=== PATIENT | female | born 1985 | race Caucasian/White ===

== ENCOUNTER 2016-09-06 17:32 | Emergency (ER) | payer OTHER ==
--- NOTE | 2016-09-06 18:19 | ED ---
Female Urogenital HPI - General Chief complaint: Vaginal Bleeding Stated complaint: bleeding Time Seen by Provider: 09/06/16 18:07 Source: patient, RN notes reviewed Mode of arrival: ambulatory Limitations: no limitations - History of Present Illness Initial comments: Patient is a 31-year-old female presents to the emergency room for evaluation of vaginal bleeding. Patient states her last menstrual period was 07/29/16. Patient states usually has normal cycles every 28 days. Patient states that about 4 days ago she woke up in the middle the night with a large clot the size of a a golf ball with cramping and then symptoms went away. Patient states she had no bleeding after that incident for the next few days. Patient states she was at court today began bleeding heavily. Patient states she's having significant cramping especially in her left lower quadrant. Patient is not sure she if she is . Patient states that this is not her normal period. Patient denies nausea or vomiting. Patient denies headache or dizziness. Patient denies chest pain or shortness of breath. Patient states she had 3 full term births and one miscarriage. Patient denies fevers, chills, weakness. Patient denies trouble urinating, pain or burning during urination or back pain. Last Menstrual Period: 07/29/16 - Related Data Home Medications Medication Instructions Recorded Confirmed Acetaminophen Tab [Tylenol Tab] 975 mg PO Q4H PRN 09/06/16 09/06/16 Ibuprofen [Motrin] 800 mg PO Q6HR PRN 09/06/16 09/06/16 Allergies Allergy/AdvReac Type Severity Reaction Status Date / Time cashew nut Allergy Unknown Verified 09/06/16 18:25 shellfish derived [Shellfish] Allergy Unknown Verified 09/06/16 18:25 levofloxacin [From Levaquin] AdvReac Unknown Verified 09/06/16 18:25 nitrofurantoin AdvReac Swelling Verified 09/06/16 18:25 macrocrystalline [From Macrodantin] Review of Systems ROS Statement: Those systems with pertinent positive or pertinent negative responses have been documented in the HPI. ROS Other: All systems not noted in ROS Statement are negative. Past Medical History Past Medical History: No Reported History History of Any Multi-Drug Resistant Organisms: None Reported Past Surgical History: Adenoidectomy, Cholecystectomy, Hernia Repair Additional Past Surgical History / Comment(s): PE tubes Past Psychological History: No Psychological Hx Reported Smoking Status: Former smoker Past Alcohol Use History: Occasional Past Drug Use History: None Reported General Exam - General Exam Comments Initial Comments: Sitting in exam room, no acute distress. Limitations: no limitations General appearance: alert, in no apparent distress Head exam: Present: atraumatic, normocephalic, normal inspection Eye exam: Present: normal appearance ENT exam: Present: normal exam Neck exam: Present: normal inspection Respiratory exam: Present: normal lung sounds bilaterally. Absent: respiratory distress Cardiovascular Exam: Present: regular rate, normal rhythm, normal heart sounds GI/Abdominal exam: Present: soft, tenderness (LLQ), normal bowel sounds. Absent : distended, guarding, rebound, rigid Speculum exam: Present: other (Patient declined) Extremities exam: Present: normal inspection Back exam: Present: normal inspection Neurological exam: Present: alert, oriented X3, CN II-XII intact, normal gait Psychiatric exam: Present: normal affect, normal mood Skin exam: Present: warm, dry, intact, normal color. Absent: rash Course Vital Signs 09/06/16 18:00 Temperature 97.9 F Pulse Rate 74 Respiratory 18 Rate Blood Pressure 113/59 O2 Sat by Pulse 98 Oximetry Medical Decision Making - Medical Decision Making Patient's 31-year-old female presents to the emergency room for evaluation of vaginal bleeding. test negative. Patient declined pelvic exam. Advised patient to follow-up with [facility] and to take Tylenol/Motrin as needed for pain. Patient states she understands everything that was discussed with her. Return parameters discussed. Case discussed with Dr. Cornelius. - Lab Data Lab Results 09/06/16 09/06/16 Range/Units 18:15 18:15 Urine Color Yellow Urine Appearance Cloudy H (Clear) Urine pH 6.0 (5.0-8.0) Ur Specific [place] 1.029 (1.001-1.035) Urine Protein 1+ H (Negative) Urine Glucose (UA) Negative (Negative) Urine Ketones 4+ H (Negative) Urine Blood Large H (Negative) Urine Nitrate Negative (Negative) Urine Bilirubin Negative (Negative) Urine Urobilinogen 2.0 (<2.0) mg/dL Ur Leukocyte Esterase Small H (Negative) Urine RBC 8 H (0-5) /hpf Urine WBC 5 (0-5) /hpf Ur Squamous Epith Cells 8 H (0-4) /hpf Urine Bacteria Rare H (None) /hpf Urine Mucus Many H (None) /hpf Urine HCG, Qual Not Detected (Not Detectd) Disposition Clinical Impression: Menorrhagia Disposition: HOME SELF-CARE Condition: Good Instructions: Dysmenorrhea (ED), Menorrhagia (ED) Additional Instructions: Take Tylenol or Motrin as needed for pain. Warm moist heat. Please follow-up with [facility] in 24-48 hours for reevaluation. If any new symptom arises, symptoms worsen or fever develops return to ER as soon as possible. Referrals: Katie Hollis MD [STAFF PHYSICIAN] - 1-2 days Time of Disposition: 19:07
[2016-09-06 18:44] LABS: Appearance,Urine Cloudy (Clear); Bacteria,Urine Rare /hpf; Bilirubin,Urine Negative (Negative); Glucose,Urine (UA) Negative (Negative); Ketones,Urine 4+ (Negative); Leukocyte Esterase,Urine Small (Negative); Mucus,Urine Many /hpf; Nitrite,Urine Negative (Negative); Particle Count 10289; Protein,Urine 1+ (Negative); RBC,Urine 8 /hpf (0-5); Specific Gravity,Urine 1.029 (1.001-1.035); Squamous Epithelial Cell,Urine 8 /hpf (0-4); UA Billing (MACRO vs. MICRO) MICRO; WBC,Urine 5 /hpf (0-5)
[2016-09-06] MEDS ORDERED: ACET/COD 300 MG/30 MG STARTER PACK 6 TAB BTL PO STA (19:09)
[2016-09-06 19:10] VITALS: BP 109/64; PULSE 64; RESP 16; TEMP 98.6
== END 2016-09-06 19:19 | disposition home or self-care (01) ==
LOC: EC 17:32
DX: N92.0 Excessive and frequent menstruation with regular cycle (principal); Z88.8 Allergy status to other drugs, medicaments and biological substances; Z88.1 Allergy status to other antibiotic agents; Z91.018 Allergy to other foods; Z91.013 Allergy to seafood; Z87.891 Personal history of nicotine dependence
CPT/HCPCS: 81001; 81025; 99283

== ENCOUNTER 2018-07-03 19:05 | Emergency (ER) | payer OTHER ==
[2018-07-03 19:12] VITALS: TEMP 97.9
[2018-07-03] MEDS ORDERED: KETOROLAC 30 MG/ML 1 ML VIAL IVP STA (19:29)
[2018-07-03] MEDS ORDERED: SODIUM CHLORIDE 0.9% 500 ML 500 ML IV STA (19:29)
--- NOTE | 2018-07-03 19:33 | ED ---
General Adult HPI - General Chief complaint: Chest Pain Stated complaint: CHEST PAIN AND SOB Time Seen by Provider: 07/03/18 19:05 Source: patient, RN notes reviewed Mode of arrival: wheelchair Limitations: no limitations - History of Present Illness Initial comments: This is a 32-year-old female presents to the emergency department complaining of anterior chest pain. Patient describes it as sharp and severe and it started 2 days ago. Patient states taking a deep breath makes it worse. Patient states after she took a nap after the first 2 hours and after that patient states the pain dull for about a day and a half this morning at 11:00 came back it was sharp again in the center of her chest area. Patient states she does have asthma attack and took her inhalers but it did not improve. Patient states she also feels a little short of breath. Patient denies any diaphoresis patient denies any fever. Patient states she's never smoker. Patient states she's not on any control. Patient denies any abdominal pain patient denies nausea vomiting diarrhea. Patient denies any radiation of the pain. Patient denies any syncope or near syncopal episode. Patient denies any headache patient denies numbness weakness. Patient denies any leg swelling or calf pain - Related Data Home Medications Medication Instructions Recorded Confirmed No Known Home Medications 07/03/18 07/03/18 Allergies Allergy/AdvReac Type Severity Reaction Status Date / Time cashew nut Allergy Unknown Verified 07/03/18 19:42 levofloxacin [From Levaquin] Allergy Anaphylaxis Verified 07/03/18 19:42 nitrofurantoin Allergy Anaphylaxis Verified 07/03/18 19:42 macrocrystalline [From Macrodantin] shellfish derived [Shellfish] Allergy Unknown Verified 07/03/18 19:42 Review of Systems ROS Statement: Those systems with pertinent positive or pertinent negative responses have been documented in the HPI. ROS Other: All systems not noted in ROS Statement are negative. Past Medical History Past Medical History: No Reported History Additional Past Medical History / Comment(s): ectopic preg History of Any Multi-Drug Resistant Organisms: None Reported Past Surgical History: Adenoidectomy, Cholecystectomy, Hernia Repair Additional Past Surgical History / Comment(s): PE tubes Past Psychological History: No Psychological Hx Reported Smoking Status: Former smoker Past Alcohol Use History: Occasional Past Drug Use History: None Reported General Exam - General Exam Comments Initial Comments: GENERAL: Patient is well-developed and well-nourished. Patient is nontoxic and well- hydrated and is in mild distress. ENT: Neck is soft and supple. No significant lymphadenopathy is noted. Oropharynx is clear. Moist mucous membranes. Neck has full range of motion without eliciting any pain. EYES: The sclera were anicteric and conjunctiva were pink and moist. Extraocular movements were intact and pupils were equal round and reactive to light. Eyelids were unremarkable. PULMONARY: Unlabored respirations. Good breath sounds bilaterally. No audible rales rhonchi or wheezing was noted. CARDIOVASCULAR: There is a regular rate and rhythm without any murmurs gallops or rubs. Patient 's pain is reproducible on palpation ABDOMEN: Soft and nontender with normal bowel sounds. No palpable organomegaly was noted. There is no palpable pulsatile mass. SKIN: Skin is clear with no lesions or rashes and otherwise unremarkable. NEUROLOGIC: Patient is alert and oriented x3. Cranial nerves II through XII are grossly intact. Motor and sensory are also intact. Normal speech, volume and content. Symmetrical smile. MUSCULOSKELETAL: Normal extremities with adequate strength and full range of motion. LYMPHATICS: No significant lymphadenopathy is noted PSYCHIATRIC: Normal psychiatric evaluation. Limitations: no limitations Course Vital Signs 07/03/18 19:10 Temperature 97.9 F Pulse Rate 81 Respiratory 20 Rate Blood Pressure 115/67 O2 Sat by Pulse 100 Oximetry Medical Decision Making - Medical Decision Making EKG shows a normal sinus rhythm at 72 bpm KS interval 136 dresses 88 QT interval 374 QTC is 409. Patient's EKG shows no ST segment elevation or depression or T wave abnormalities are noted. Chest x-ray shows no acute abnormalities. The patient Toradol patient was feeling considerably better. - Lab Data Result diagrams: 07/03/18 19:22 07/03/18 19:22 Lab Results 07/03/18 07/03/18 07/03/18 Range/Units 19:22 19:22 19:22 WBC 10.2 (3.8-10.6) k/uL RBC 3.92 (3.80-5.40) m/uL Hgb 12.5 (11.4-16.0) gm/dL Hct 36.8 (34.0-46.0) % MCV 93.9 (80.0-100.0) fL MCH 31.8 (25.0-35.0) pg MCHC 33.9 (31.0-37.0) g/dL RDW 11.9 (11.5-15.5) % Plt Count 234 (150-450) k/uL Neutrophils % 49 % Lymphocytes % 38 % Monocytes % 7 % Eosinophils % 3 % Basophils % 0 % Neutrophils # 5.1 (1.3-7.7) k/uL Lymphocytes # 3.9 (1.0-4.8) k/uL Monocytes # 0.7 (0-1.0) k/uL Eosinophils # 0.3 (0-0.7) k/uL Basophils # 0.0 (0-0.2) k/uL PT (9.0-12.0) sec INR (<1.2) APTT (22.0-30.0) sec D-Dimer (<0.60) mg/L FEU Sodium 140 (137-145) mmol/L Potassium 3.9 (3.5-5.1) mmol/L Chloride 109 H (98-107) mmol/L Carbon Dioxide 23 (22-30) mmol/L Anion Gap 8 mmol/L BUN 19 H (7-17) mg/dL Creatinine 0.54 (0.52-1.04) mg/dL Est GFR (CKD-EPI)AfAm >90 (>60 ml/min/1.73 sqM) Est GFR (CKD-EPI)NonAf >90 (>60 ml/min/1.73 sqM) Glucose 105 H (74-99) mg/dL Calcium 9.4 (8.4-10.2) mg/dL Magnesium 1.7 (1.6-2.3) mg/dL Total Bilirubin 0.3 (0.2-1.3) mg/dL AST 20 (14-36) U/L ALT 45 (9-52) U/L Alkaline Phosphatase 54 (38-126) U/L Total Creatine Kinase 64 (30-135) U/L CK-MB (CK-2) 0.9 (0.0-2.4) ng/mL CK-MB (CK-2) Rel Index 1.4 Troponin I <0.012 (0.000-0.034) ng/mL Total Protein 6.5 (6.3-8.2) g/dL Albumin 3.7 (3.5-5.0) g/dL 07/03/18 Range/Units 19:22 WBC (3.8-10.6) k/uL RBC (3.80-5.40) m/uL Hgb (11.4-16.0) gm/dL Hct (34.0-46.0) % MCV (80.0-100.0) fL MCH (25.0-35.0) pg MCHC (31.0-37.0) g/dL RDW (11.5-15.5) % Plt Count (150-450) k/uL Neutrophils % % Lymphocytes % % Monocytes % % Eosinophils % % Basophils % % Neutrophils # (1.3-7.7) k/uL Lymphocytes # (1.0-4.8) k/uL Monocytes # (0-1.0) k/uL Eosinophils # (0-0.7) k/uL Basophils # (0-0.2) k/uL PT 10.4 (9.0-12.0) sec INR 1.1 (<1.2) APTT 24.3 (22.0-30.0) sec D-Dimer 0.52 (<0.60) mg/L FEU Sodium (137-145) mmol/L Potassium (3.5-5.1) mmol/L Chloride (98-107) mmol/L Carbon Dioxide (22-30) mmol/L Anion Gap mmol/L BUN (7-17) mg/dL Creatinine (0.52-1.04) mg/dL Est GFR (CKD-EPI)AfAm (>60 ml/min/1.73 sqM) Est GFR (CKD-EPI)NonAf (>60 ml/min/1.73 sqM) Glucose (74-99) mg/dL Calcium (8.4-10.2) mg/dL Magnesium (1.6-2.3) mg/dL Total Bilirubin (0.2-1.3) mg/dL AST (14-36) U/L ALT (9-52) U/L Alkaline Phosphatase (38-126) U/L Total Creatine Kinase (30-135) U/L CK-MB (CK-2) (0.0-2.4) ng/mL CK-MB (CK-2) Rel Index Troponin I (0.000-0.034) ng/mL Total Protein (6.3-8.2) g/dL Albumin (3.5-5.0) g/dL Disposition Clinical Impression: Chest wall pain Disposition: HOME SELF-CARE Condition: Good Instructions: Costochondritis (ED), Chest Wall Pain (ED) Additional Instructions: Patient should take Motrin 600 mg every 6 hours. Is patient prescribed a controlled substance at d/c from ED?: No Referrals: None,Stated [Primary Care Provider] - 1-2 days Decision Time: 20:37
[2018-07-03 19:56] LABS: Basophils % (A) 0 %; Eosinophils # (A) 0.3 k/uL (0-0.7); Eosinophils % (A) 3 %; HCT 36.8 % (34.0-46.0); HGB 12.5 gm/dL (11.4-16.0); Lymphocytes # (A) 3.9 k/uL (1.0-4.8); Lymphocytes % (A) 38 %; MCH 31.8 pg (25.0-35.0); MCHC 33.9 g/dL (31.0-37.0); MCV 93.9 fL (80.0-100.0); Mean Platelet Volume 7.2; Monocytes # (A) 0.7 k/uL (0-1.0); Monocytes % (A) 7 %; Neutrophils # (A) 5.1 k/uL (1.3-7.7); Neutrophils % (A) 49 %; Platelet Count 234 k/uL (150-450); RBC 3.92 m/uL (3.80-5.40); RDW 11.9 % (11.5-15.5); WBC 10.2 k/uL (3.8-10.6)
--- NOTE | 2018-07-03 20:03 | XR ---
EXAMINATION TYPE: XR chest 2V DATE OF EXAM: 07/03/2018 COMPARISON: 07/24/2013 HISTORY: Short of breath TECHNIQUE: Frontal and lateral views of the chest are obtained. FINDINGS: Heart and mediastinum are normal. Lungs are clear. Diaphragm is normal. Bony thorax appear s normal. IMPRESSION: Normal chest. No change.
[2018-07-03 20:08] LABS: ALT 45 U/L (9-52); AST 20 U/L (14-36); Albumin 3.7 g/dL (3.5-5.0); Alkaline Phosphatase 54 U/L (38-126); Anion Gap 8 mmol/L; Blood Urea Nitrogen 19 mg/dL (7-17); Calcium 9.4 mg/dL (8.4-10.2); Carbon Dioxide 23 mmol/L (22-30); Chloride 109 mmol/L (98-107); Creatine Kinase 64 U/L (30-135); Glucose 105 mg/dL (74-99); Magnesium 1.7 mg/dL (1.6-2.3); Potassium 3.9 mmol/L (3.5-5.1); Sodium 140 mmol/L (137-145); Total Bilirubin 0.3 mg/dL (0.2-1.3); Total Protein 6.5 g/dL (6.3-8.2)
[2018-07-03 20:21] LABS: Creatine Kinase MB 0.9 ng/mL (0.0-2.4); Troponin I <0.012 ng/mL (0.000-0.034)
[2018-07-03 20:26] LABS: D-Dimer 0.52 mg/L FEU (<0.60); INR 1.1 (<1.2); Partial Thromboplastin Time 24.3 sec (22.0-30.0); Prothrombin Time 10.4 sec (9.0-12.0)
[2018-07-03 20:40] VITALS: BP 107/56; PULSE 79; RESP 13
== END 2018-07-03 20:41 | disposition home or self-care (01) ==
LOC: EC 19:05
DX: R07.89 Other chest pain (principal); R06.02 Shortness of breath; Z87.891 Personal history of nicotine dependence; Z90.49 Acquired absence of other specified parts of digestive tract; Z98.890 Other specified postprocedural states; Z88.1 Allergy status to other antibiotic agents; Z91.013 Allergy to seafood; Z91.018 Allergy to other foods
CPT/HCPCS: 36415; 71046; 80053; 82550; 82553; 83735; 84484; 85025; 85379; 85610; 85730; 96374; 99285

== ENCOUNTER 2018-10-16 20:16 | Emergency (ER) | payer OTHER ==
[2018-10-16 20:45] VITALS: BP 134/78; PULSE 92; RESP 20; TEMP 98.7
[2018-10-16] MEDS ORDERED: HYDROcodone/APAP 7.5-325MG 1 EACH TAB PO ONE (21:26)
--- NOTE | 2018-10-16 21:55 | XR ---
EXAMINATION TYPE: XR ankle complete RT DATE OF EXAM: 10/16/2018 COMPARISON: NONE HISTORY: Ankle pain TECHNIQUE: 3 views FINDINGS: Ankle mortise is anatomic. I see no fracture nor dislocation. Joint spaces are normal. IMPRESSION: Calcaneal spurring. No fracture seen.
--- NOTE | 2018-10-16 21:56 | XR ---
EXAMINATION TYPE: XR foot complete RT DATE OF EXAM: 10/16/2018 COMPARISON: NONE HISTORY: Ankle pain foot pain TECHNIQUE: 3 views FINDINGS: Metatarsals appear intact. I see no fracture nor dislocation. There are no erosions. IMPRESSION: Negative right foot exam.
[2018-10-16] MEDS ORDERED: ACET/COD 300 MG/30 MG STARTER PACK 6 TAB BTL PO STA (22:25)
--- NOTE | 2018-10-16 22:26 | ED ---
General Adult HPI - General Chief complaint: Extremity Injury, Lower Stated complaint: Fall,ankle injury Time Seen by Provider: 10/16/18 20:36 Source: patient, RN notes reviewed, old records reviewed Mode of arrival: wheelchair Limitations: no limitations - History of Present Illness Initial comments: 33-year-old female patient presents to ED with right ankle injury. Patient was that she was walking downstairs, suffered a right ankle inversion injury on a broken stay. Patient states that she grabbed guardrail, slid down 2 stairs onto her backside. Patient reports that her primary complaint is right ankle pain. Patient denies any trauma to head or neck. Patient denies any other injury. Patient states that she is ambulatory with pain in her ankle. Patient is a her pain is primarily in her lateral malleolus. Patient denies other complaints. Systemic: Pt denies fatigue, fever/chills, rash. Pt denies weakness, night sweats, weight loss. Neuro: Pt denies headache, visual disturbances, syncope or pre-syncope. HEENT: Pt denies ocular discharge or irritation, otalgia, rhinorrhea, pharyngitis or notable lymphadenopathy. Cardiopulmonary: Pt denies chest pain, SOB, heart palpitations, dyspnea on exertion. Abdominal/GI: Pt denies abdominal pain, n/v/d. : Pt denies dysuria, burning w/ urination, frequency/urgency. Denies new onset urinary or bowel incontinence. MSK: Pt denies loss of strength or function in extremities. Neuro: Pt denies new onset weakness, paresthesias. - Related Data Home Medications Medication Instructions Recorded Confirmed No Known Home Medications 07/03/18 10/16/18 Allergies Allergy/AdvReac Type Severity Reaction Status Date / Time cashew nut Allergy Unknown Verified 07/03/18 19:42 levofloxacin [From Levaquin] Allergy Anaphylaxis Verified 07/03/18 19:42 nitrofurantoin Allergy Anaphylaxis Verified 07/03/18 19:42 macrocrystalline [From Macrodantin] shellfish derived [Shellfish] Allergy Unknown Verified 07/03/18 19:42 Review of Systems ROS Statement: Those systems with pertinent positive or pertinent negative responses have been documented in the HPI. ROS Other: All systems not noted in ROS Statement are negative. Past Medical History Past Medical History: No Reported History Additional Past Medical History / Comment(s): ectopic preg History of Any Multi-Drug Resistant Organisms: None Reported Past Surgical History: Adenoidectomy, Cholecystectomy, Hernia Repair Additional Past Surgical History / Comment(s): PE tubes Past Psychological History: No Psychological Hx Reported Smoking Status: Former smoker Past Alcohol Use History: Occasional Past Drug Use History: None Reported General Exam - General Exam Comments Initial Comments: Constitutional: NAD, AOX3, Pt has pleasant affect. HEENT: NC/AT, trachea midline, neck supple, no lymphadenopathy. Posterior pharynx non erythematous, without exudates. External ears appear normal, without discharge. Mucous membranes moist. Eyes PERRLA, EOM intact. There is no scleral icterus. No pallor noted. Cardiopulmonary: RRR, no murmurs, rubs or gallops, no JVD noted. Lungs CTAB in anterior and posterior hoyos. No peripheral edema. Abdominal exam: Abdomen soft and non-distended. Abdomen non-tender to palpation in all 4 quadrants. Bowel sounds active in LLQ. No hepatosplenomegaly. No ecchymosis Neuro: CN II-XII grossly intact. No nuchal rigidity. MSK: Lateral malleolus mildly tender to palpation. Sensation intact. Plantar and dorsiflexion intact. Patient able wiggle toes. No tibia/fibular tenderness. No other areas of tenderness. No posterior calf tenderness bilaterally, homans sign negative bilaterally. Posterior tibialis and radial pulse +2 bilaterally. Sensation intact in upper and lower extremities. Full active ROM in upper and lower extremities, 5/5 stregnth. Limitations: no limitations Course Vital Signs 10/16/18 20:41 Temperature 98.7 F Pulse Rate 92 Respiratory 20 Rate Blood Pressure 134/78 O2 Sat by Pulse 99 Oximetry Medical Decision Making - Medical Decision Making 33-year-old female patient presents to ED with right ankle injury. Patient was that she was walking downstairs, suffered a right ankle inversion injury on a broken stay. Patient states that she grabbed guardrail, slid down 2 stairs onto her backside. Patient reports that her primary complaint is right ankle pain. Patient denies any trauma to head or neck. Patient denies any other injury. Patient states that she is ambulatory with pain in her ankle. Patient is a her pain is primarily in her lateral malleolus. Patient denies other complaints. Pt VSS, afebrile. Physical exam displayed: Lateral malleolus mildly tender to palpation. Sensation intact. Plantar and dorsiflexion intact. Patient able wiggle toes. No tibia/fibular tenderness. Plain film of ankle and foot do not display any acute fracture. Patient diagnosed with ankle sprain. Patient placed in posterior ankle splint. Patient upper airway and orthopedic follow-up. Patient to follow-up orthopedic consult 1-2 days. Patient to follow-up PCP 1-2 days. Patient not driving home. Case discussed with Dr. Bain. Disposition Clinical Impression: Ankle sprain Disposition: HOME SELF-CARE Condition: Stable Instructions (If sedation given, give patient instructions): Ankle Sprain (ED) Additional Instructions: Patient to adhere to previously discussed treatment plan and will take medication(s) as directed. Patient to follow up with PCP in 1-2 days. Patient to return to ED if symptoms do not improve. Is patient prescribed a controlled substance at d/c from ED?: No Referrals: None,Stated [Primary Care Provider] - 1-2 days Michael De Leon DO [Doctor of Osteopathic Medicine] - 1-2 days Time of Disposition: 22:25
== END 2018-10-16 22:33 | disposition home or self-care (01) ==
LOC: EC 20:16
DX: S93.401A Sprain of unspecified ligament of right ankle, initial encounter (principal); Z91.018 Allergy to other foods; Z88.1 Allergy status to other antibiotic agents; Z91.013 Allergy to seafood; Z87.891 Personal history of nicotine dependence; W10.9XXA Fall (on) (from) unspecified stairs and steps, initial encounter; Y93.01 Activity, walking, marching and hiking
CPT/HCPCS: 29515; 99284

== ENCOUNTER 2019-10-05 23:46 | Emergency (ER) | payer OTHER ==
[2019-10-05 23:51] VITALS: BP 145/100; PULSE 82; RESP 20; TEMP 98.9
[2019-10-06] MEDS ORDERED: HYDROcodone/APAP 10-325MG 1 EACH TAB PO ONE (00:01)
--- NOTE | 2019-10-06 00:40 | XR ---
EXAMINATION TYPE: XR knee complete LT DATE OF EXAM: 10/06/2019 COMPARISON: NONE HISTORY: Knee pain TECHNIQUE: 3 views FINDINGS: I see no fracture nor dislocation. Joint spaces are normal. There is no sign of joint effus ion. IMPRESSION: Negative left knee exam.
[2019-10-06] MEDS ORDERED: ACET/COD 300 MG/30 MG STARTER PACK 6 TAB BTL PO STA (00:47)
--- NOTE | 2019-10-06 00:49 | ED ---
Lower Extremity Injury HPI - General Chief Complaint: Extremity Injury, Lower Stated Complaint: leg pain Time Seen by Provider: 10/05/19 23:57 Source: patient Mode of arrival: ambulatory Limitations: no limitations - History of Present Illness Initial Comments: 34yo female presenting today for chief complaint of left knee pain. Patient states she went to set a ball jumped up in the air when she felt a pop the left knee mid air. Patient states it feels like it is inside the knee. Patient denies dislocation denies fall struck trauma. Patient denies numbness tingling loss sensation weakness pallor of the knee. Patient states she believes she pulled something. Patient denies any other complaints or injury. Remaining review of systems negative upon arrival patient appears on the signs of acute distress she is grabbing the left knee. - Related Data Home Medications Medication Instructions Recorded Confirmed No Known Home Medications 07/03/18 10/16/18 Allergies Allergy/AdvReac Type Severity Reaction Status Date / Time cashew nut Allergy Unknown Verified 10/05/19 23:51 levofloxacin [From Levaquin] Allergy Anaphylaxis Verified 10/05/19 23:51 nitrofurantoin Allergy Anaphylaxis Verified 10/05/19 23:51 macrocrystalline [From Macrodantin] shellfish derived [Shellfish] Allergy Unknown Verified 10/05/19 23:51 Review of Systems ROS Statement: Those systems with pertinent positive or pertinent negative responses have been documented in the HPI. ROS Other: All systems not noted in ROS Statement are negative. Past Medical History Past Medical History: No Reported History Additional Past Medical History / Comment(s): ectopic preg History of Any Multi-Drug Resistant Organisms: None Reported Past Surgical History: Adenoidectomy, Cholecystectomy, Hernia Repair Additional Past Surgical History / Comment(s): PE tubes Past Psychological History: No Psychological Hx Reported Smoking Status: Former smoker Past Alcohol Use History: Occasional Past Drug Use History: None Reported General Exam - General Exam Comments Initial Comments: General: The patient is awake and alert, in no distress, and does not appear acutely ill. Eye: =3 mm pupils are equal, round and reactive to light, extra-ocular movements are intact. No nystagmus. There is normal conjunctiva bilaterally. No signs of icterus. Cardiovascular: There is a regular rate and rhythm. No murmur, rub or gallop is appreciated. Respiratory: Lungs are clear to auscultation, respirations are non-labored, breath sounds are equal. No wheezes, stridor, rales, or rhonchi. Musculoskeletal: Normal inspection of the knees bilaterally. No obvious soft tissue swelling. No noted laxity. Patient is able to range of the left knee however this is tender. There is range of motion of the right knee ankles bi laterally as well as hips. Patient extensor mechanism intact. Palpable Achilles tendon. Strength 5/5. Sensation intact. DP pulses equal bilaterally 2+. Neurological: A&O x 3. CN II-XII intact grossly, There are no obvious motor or sensory deficits. Coordination appears grossly intact. Speech is normal. Skin: Skin is warm and dry and no rashes or lesions are noted. Psychiatric: Cooperative, appropriate mood & affect, normal judgment. Limitations: no limitations Course Vital Signs 10/05/19 23:49 Temperature 98.9 F Pulse Rate 82 Respiratory 20 Rate Blood Pressure 145/100 O2 Sat by Pulse 99 Oximetry Medical Decision Making - Medical Decision Making 34yo female presenting for cc of left knee pain. No obvious PE findings aside from pain wtih ROM. XR (-) patient neurovascularly intact. Suspect patient has possible ligamentous injury such as PCL ACL. I recommend patient use a knee immobilizer for ambulation as well as crutches. Follow-up with orthopedics for outpatient MRI. Patient's group with this care plan discharge at this time I recommend patient avoid sports at this time. Discussed case with Dr. Borjas Disposition Clinical Impression: Left knee sprain, Left knee pain, Left knee injury Disposition: HOME SELF-CARE Condition: Good Instructions (If sedation given, give patient instructions): Knee Sprain (ED) Additional Instructions: Please use medication as discussed. Please follow-up with orthopedic surgery in the next week recommend use of crutches, keep knee immobilizer in place for ambulation, recommend outpatient MRI. Please return to emergency room if the symptoms increase or worsen or for any other concerns. Is patient prescribed a controlled substance at d/c from ED?: No Referrals: None,Stated [Primary Care Provider] - 1-2 days Zeyad Jacobson MD [STAFF PHYSICIAN] - 1-2 days Time of Disposition: 00:48
== END 2019-10-06 01:03 | disposition home or self-care (01) ==
LOC: EC 23:46
DX: S83.92XA Sprain of unspecified site of left knee, initial encounter (principal); Z91.018 Allergy to other foods; Z88.1 Allergy status to other antibiotic agents; Z91.013 Allergy to seafood; Z87.891 Personal history of nicotine dependence; X50.9XXA Other and unspecified overexertion or strenuous movements or postures, initial encounter
CPT/HCPCS: 73562; 99283; L1830

== ENCOUNTER 2020-01-31 23:22 | Emergency (ER) | payer OTHER ==
[2020-01-31 23:27] VITALS: BP 157/78; PULSE 76; RESP 18; TEMP 97.9
[2020-01-31] MEDS ORDERED: Acetaminophen-Codeine 300-30mg TAB PO STA (23:43)
[2020-01-31] MEDS ORDERED: ACET/COD 300 MG/30 MG STARTER PACK 6 TAB BTL PO STA (23:43)
[2020-01-31] MEDS ORDERED: PENICILLIN VK 500MG STARTER 4 TAB BTL PO STA (23:43)
[2020-01-31] MEDS ORDERED: IBUPROFEN 600 MG STARTER PACK 4 TAB BTL PO STA (23:43)
[2020-01-31] MEDS ORDERED: IBUPROFEN 800 MG TAB PO STA (23:43)
[2020-02-01] MEDS ORDERED: PENICILLIN V POTASSIUM 250 MG TAB PO ONE
[2020-02-01] MEDS ORDERED: HYDROcodone/APAP 5-325MG 1 EACH TAB PO STA (00:18)
--- NOTE | 2020-02-01 00:20 | ED ---
ENT HPI - General Chief complaint: Dental/Oral Stated complaint: Jaw/tooth pain Time Seen by Provider: 01/31/20 23:33 Source: patient, RN notes reviewed, old records reviewed Mode of arrival: ambulatory Limitations: no limitations - History of Present Illness Initial comments: This is a 32-year-old female DF for evaluation patient Dese for evaluation of severe jaw pain severe tooth pain. Patient has been increasing mild nausea no vomiting no fevers. No significant swelling or face history of dental abscess dental caries does have plan in the future to see a dentist but secondary to pandemic has not been able to MD complaint: tooth pain -: days(s) Location: tooth # (Left rear molar) Severity: severe Severity scale (1-10): 9 Quality: aching, sharp Consistency: constant Improves with: none Worsens with: none Context- Dental: history of dental caries, poor dental care - Related Data Previous Rx's Medication Instructions Recorded HYDROcodone/APAP 5-325MG [[place] 1 tab PO Q6HR PRN #12 tab 02/01/20 5-325] Penicillin V Potassium [Pen Vee K] 500 mg PO Q6H 10 Days #40 tablet 02/02/20 Allergies Allergy/AdvReac Type Severity Reaction Status Date / Time cashew nut Allergy Unknown Verified 02/02/20 15:39 codeine Allergy Chest Pain Verified 02/02/20 15:39 levofloxacin [From Levaquin] Allergy Anaphylaxis Verified 02/02/20 15:39 nitrofurantoin Allergy Anaphylaxis Verified 02/02/20 15:39 macrocrystalline [From Macrodantin] shellfish derived [Shellfish] Allergy Unknown Verified 02/02/20 15:39 Review of Systems ROS Statement: Those systems with pertinent positive or pertinent negative responses have been documented in the HPI. ROS Other: All systems not noted in ROS Statement are negative. Past Medical History Past Medical History: No Reported History Additional Past Medical History / Comment(s): ectopic preg History of Any Multi-Drug Resistant Organisms: None Reported Past Surgical History: Adenoidectomy, Cholecystectomy, Hernia Repair Additional Past Surgical History / Comment(s): PE tubes Past Psychological History: No Psychological Hx Reported Smoking Status: Former smoker Past Alcohol Use History: Occasional Past Drug Use History: None Reported General Exam Limitations: no limitations General appearance: alert, in no apparent distress Head exam: Present: atraumatic, normocephalic, normal inspection Eye exam: Present: normal appearance, PERRL, EOMI. Absent: scleral icterus, conjunctival injection, periorbital swelling ENT exam: Present: normal exam, mucous membranes moist, other (Left rear molar tooth fracture) Neck exam: Present: normal inspection. Absent: tenderness, meningismus, lymphadenopathy Respiratory exam: Present: normal lung sounds bilaterally. Absent: respiratory distress, wheezes, rales, rhonchi, stridor Cardiovascular Exam: Present: regular rate, normal rhythm, normal heart sounds. Absent: systolic murmur, diastolic murmur, rubs, gallop, clicks GI/Abdominal exam: Present: soft, normal bowel sounds. Absent: distended, tenderness, guarding, rebound, rigid Extremities exam: Present: normal inspection, full ROM, normal capillary refill. Absent: tenderness, pedal edema, joint swelling, calf tenderness Back exam: Present: normal inspection Neurological exam: Present: alert, oriented X3, CN II-XII intact Psychiatric exam: Present: normal affect, normal mood Skin exam: Present: warm, dry, intact, normal color. Absent: rash Course Vital Signs 01/31/20 23:24 Temperature 97.9 F Pulse Rate 76 Respiratory 18 Rate Blood Pressure 157/78 O2 Sat by Pulse 100 Oximetry - Reevaluation(s) Reevaluation #1: Medical records reviewed Patient's pain is controlled Medical Decision Making - Medical Decision Making 34 female DF for evaluation patient has severe tooth pain patient placed on antibiotics and pain control can be discharged Disposition Clinical Impression: Dental caries, Dental abscess Disposition: HOME SELF-CARE Condition: Good Instructions (If sedation given, give patient instructions): Dental Abscess (ED), Toothache (ED) Prescriptions: HYDROcodone/APAP 5-325MG [[place] 5-325] 1 tab PO Q6HR PRN #12 tab PRN Reason: Pain Is patient prescribed a controlled substance at d/c from ED?: Yes When asked, does pt state using other controlled substances?: No If prescribed controlled substance>3 days was MAPS reviewed?: Prescribed <3 Days If opioid is for acute pain is fill amount 7 days or less?: Yes If Rx opioid, was Start Talking consent form obtained?: Yes Referrals: None,Stated [Primary Care Provider] - 1-2 days
== END 2020-02-01 00:57 | disposition home or self-care (01) ==
LOC: EC 23:22
DX: K04.7 Periapical abscess without sinus (principal); K02.9 Dental caries, unspecified; Z88.1 Allergy status to other antibiotic agents; Z88.5 Allergy status to narcotic agent; Z91.013 Allergy to seafood; Z91.018 Allergy to other foods; Z87.891 Personal history of nicotine dependence
CPT/HCPCS: 99283

== ENCOUNTER 2020-02-02 15:30 | Emergency (ER) | payer OTHER ==
[2020-02-02 15:39] VITALS: RESP 18
--- NOTE | 2020-02-02 16:13 | ED ---
General Adult HPI - General Chief complaint: Dental/Oral Stated complaint: swollen jaw Time Seen by Provider: 02/02/20 15:57 Source: patient, RN notes reviewed, old records reviewed Mode of arrival: ambulatory Limitations: no limitations - History of Present Illness Initial comments: 34-year-old female presents to the emergency department for dental pain. Patient states she has had dental pain for the past 5 days or so. Patient states that it is swollen in the lower jaw. States that the swelling started yesterday. Patient states she finished the starter pack of penicillin she was given in the morning yesterday but did not have a prescription at the pharmacy for more penicillin. Patient states that about the day the swelling started to get worse. She denies fevers or chills. She denies difficulty eating or drinking. Denies any neck pain.Patient has no other complaints at this time including shortness of breath, chest pain, abdominal pain, nausea or vomiting, headache, or visual changes. - Related Data Previous Rx's Medication Instructions Recorded HYDROcodone/APAP 5-325MG [[place] 1 tab PO Q6HR PRN #12 tab 02/01/20 5-325] Penicillin V Potassium [Pen Vee K] 500 mg PO Q6H 10 Days #40 tablet 02/02/20 Allergies Allergy/AdvReac Type Severity Reaction Status Date / Time cashew nut Allergy Unknown Verified 02/02/20 15:39 codeine Allergy Chest Pain Verified 02/02/20 15:39 levofloxacin [From Levaquin] Allergy Anaphylaxis Verified 02/02/20 15:39 nitrofurantoin Allergy Anaphylaxis Verified 02/02/20 15:39 macrocrystalline [From Macrodantin] shellfish derived [Shellfish] Allergy Unknown Verified 02/02/20 15:39 Review of Systems ROS Statement: Those systems with pertinent positive or pertinent negative responses have been documented in the HPI. ROS Other: All systems not noted in ROS Statement are negative. Past Medical History Past Medical History: No Reported History Additional Past Medical History / Comment(s): ectopic preg History of Any Multi-Drug Resistant Organisms: None Reported Past Surgical History: Adenoidectomy, Cholecystectomy, Hernia Repair Additional Past Surgical History / Comment(s): PE tubes Past Psychological History: No Psychological Hx Reported Smoking Status: Former smoker Past Alcohol Use History: Occasional Past Drug Use History: Marijuana General Exam Limitations: no limitations General appearance: alert, in no apparent distress Head exam: Present: atraumatic, normocephalic, normal inspection Eye exam: Present: normal appearance, PERRL, EOMI. Absent: scleral icterus, conjunctival injection, periorbital swelling ENT exam: Present: mucous membranes moist, other (Patient has mild edema of the left lower jaw. Patient has a cracked tooth 19. small area of edema adjacent to the tooth.) Neck exam: Present: normal inspection, full ROM. Absent: tenderness, meningismus, lymphadenopathy Respiratory exam: Present: normal lung sounds bilaterally Cardiovascular Exam: Present: regular rate, normal rhythm, normal heart sounds. Absent: systolic murmur, diastolic murmur, rubs, gallop, clicks Neurological exam: Present: alert Course Vital Signs 02/02/20 02/02/20 15:36 16:02 Temperature 98.0 F 98 F Pulse Rate 65 72 Respiratory 18 Rate Blood Pressure 149/84 141/85 O2 Sat by Pulse 99 99 Oximetry Medical Decision Making - Medical Decision Making Patient does have some edema of the left lower jaw. I did attempt to incise and drain this as she did have an area of edema adjacent to the affected cracked tooth with 18 G however no purulent material is expelled. Patient only received a starter pack to the emergency room for penicillin. Patient needs longer prescription and was therefore given ten-day supply. She will follow-up with her doctor and dentist as soon as possible. If symptoms are somewhat improving after the next couple days of penicillin she will return here to the emergency room. Disposition Clinical Impression: Pain, dental Disposition: HOME SELF-CARE Condition: Good Instructions (If sedation given, give patient instructions): Toothache (ED) Additional Instructions: Please take antibiotic as directed. Please apply cold compresses to the face. Take Motrin Tylenol for pain. Follow-up with dentist as soon as possible. Return to the emergency room for worsening symptoms. Prescriptions: Penicillin V Potassium [Pen Vee K] 500 mg PO Q6H 10 Days #40 tablet Is patient prescribed a controlled substance at d/c from ED?: No Referrals: Ariella Del Real MD [REFERRING] - 1-2 days Time of Disposition: 16:14
[2020-02-02 16:18] VITALS: BP 141/85; PULSE 72; TEMP 98
== END 2020-02-02 16:29 | disposition home or self-care (01) ==
LOC: EC 15:30
DX: K03.81 Cracked tooth (principal); Z88.1 Allergy status to other antibiotic agents; Z88.5 Allergy status to narcotic agent; Z88.8 Allergy status to other drugs, medicaments and biological substances; Z87.891 Personal history of nicotine dependence; Z91.013 Allergy to seafood; Z91.018 Allergy to other foods; Z90.49 Acquired absence of other specified parts of digestive tract; Z90.89 Acquired absence of other organs
CPT/HCPCS: 41800; 99283

== ENCOUNTER → 2020-06-03 | Outpatient (CLI) | payer OTHER ==
[2020-06-03 13:46] LABS: HCT 37.8 % (34.0-46.0); HGB 12.7 gm/dL (11.4-16.0); MCH 30.5 pg (25.0-35.0); MCHC 33.7 g/dL (31.0-37.0); MCV 90.6 fL (80.0-100.0); Mean Platelet Volume 7.3; Platelet Count 284 k/uL (150-450); RBC 4.17 m/uL (3.80-5.40); RDW 12.1 % (11.5-15.5); WBC 10.5 k/uL (3.8-10.6)
[2020-06-03 14:28] LABS: Appearance,Urine Cloudy (Clear); Bacteria,Urine Rare /hpf; Bilirubin,Urine Negative (Negative); Blood,Urine Negative (Negative); Color,Urine Yellow; Glucose,Urine (UA) Negative (Negative); Hyaline Casts,Urine 1 /lpf (0-2); Ketones,Urine Negative (Negative); Leukocyte Esterase,Urine Small (Negative); Mucus,Urine Many /hpf; Nitrite,Urine Negative (Negative); PH, Urine 6.5 (5.0-8.0); Protein,Urine Trace (Negative); RBC,Urine 9 /hpf (0-5); Specific Gravity,Urine 1.025 (1.001-1.035); Squamous Epithelial Cell,Urine 5 /hpf (0-4); Urobilinogen,Urine <2.0 mg/dL (<2.0); WBC,Urine 4 /hpf (0-5)
== END | disposition home or self-care (01) ==
LOC: LABWHC1 12:22
DX: Z01.812 Encounter for preprocedural laboratory examination (principal)
CPT/HCPCS: 36415; 81001; 85027

== ENCOUNTER 2020-07-10 22:41 | Emergency (ER) | payer OTHER ==
[2020-07-10 23:11] LABS: Basophils % (A) 0 %; Eosinophils # (A) 0.6 k/uL (0-0.7); Eosinophils % (A) 5 %; HCT 40.7 % (34.0-46.0); HGB 12.7 gm/dL (11.4-16.0); Lymphocytes # (A) 4.3 k/uL (1.0-4.8); Lymphocytes % (A) 35 %; MCH 30.4 pg (25.0-35.0); MCHC 31.2 g/dL (31.0-37.0); Mean Platelet Volume 7.5; Monocytes # (A) 0.6 k/uL (0-1.0); Monocytes % (A) 5 %; Neutrophils # (A) 6.4 k/uL (1.3-7.7); Neutrophils % (A) 53 %; Platelet Count 293 k/uL (150-450); RBC 4.19 m/uL (3.80-5.40); RDW 13.1 % (11.5-15.5); WBC 12.1 k/uL (3.8-10.6)
[2020-07-10 23:20] LABS: MCV 97.2 fL (80.0-100.0)
[2020-07-10 23:23] LABS: ALT 19 U/L (4-34); AST 19 U/L (14-36); African American GFR (CKD) >90 (>60 ml/min/1.73 sqM); Albumin 3.9 g/dL (3.5-5.0); Alkaline Phosphatase 84 U/L (38-126); Amylase 65 U/L (30-110); Anion Gap 5 mmol/L; Blood Urea Nitrogen 15 mg/dL (7-17); Calcium 9.1 mg/dL (8.4-10.2); Carbon Dioxide 25 mmol/L (22-30); Chloride 109 mmol/L (98-107); Glucose 95 mg/dL (74-99); Lipase 142 U/L (23-300); Non-African American GFR(CKD) >90 (>60 ml/min/1.73 sqM); Potassium 3.7 mmol/L (3.5-5.1); Sodium 139 mmol/L (137-145); Total Bilirubin 0.2 mg/dL (0.2-1.3); Total Protein 6.7 g/dL (6.3-8.2)
[2020-07-10 23:38] LABS: HCG,Quantitative Serum <2.4 mIU/mL
--- NOTE | 2020-07-10 23:57 | ED ---
Abdominal Pain HPI - General Chief Complaint: Abdominal Pain Stated Complaint: Cramping, preg about 6 wks Time Seen by Provider: 07/10/20 22:48 Source: patient, family Mode of arrival: ambulatory Limitations: no limitations - History of Present Illness Initial Comments: this patient is a 35-year-old woman with history of previous tubal ligation which was subsequently reversed who presents with concern that she may have ectopic . The patient states that she had taken a home test that looked faintly positive. Her last period she states was approximately 3-4 weeks ago but was somewhat claims auditor than usual. She has been having some intermittent sharp, right lower quadrant pains going back 1-2 days now. She states that there is currently not pain but they tend to come and go. She is not having any gastrointestinal symptoms, no nausea or vomiting. No anorexia, no diarrhea or constipation. She has not noted any change of urination. No vaginal discharge or bleeding. MD Complaint: abdominal pain -: days(s) Location: RLQ Severity: moderate Quality: stabbing Consistency: intermittent Improves With: nothing Worsens With: nothing Associated Symptoms: denies other symptoms - Related Data Previous Rx's Medication Instructions Recorded HYDROcodone/APAP 5-325MG [[place] 1 tab PO Q6HR PRN #12 tab 02/01/20 5-325] Penicillin V Potassium [Pen Vee K] 500 mg PO Q6H 10 Days #40 tablet 02/02/20 Allergies Allergy/AdvReac Type Severity Reaction Status Date / Time cashew nut Allergy Unknown Verified 07/10/20 22:47 codeine Allergy Chest Pain Verified 07/10/20 22:47 levofloxacin [From Levaquin] Allergy Anaphylaxis Verified 07/10/20 22:47 nitrofurantoin Allergy Anaphylaxis Verified 07/10/20 22:47 macrocrystalline [From Macrodantin] shellfish derived [Shellfish] Allergy Unknown Verified 07/10/20 22:47 Review of Systems ROS Statement: Those systems with pertinent positive or pertinent negative responses have been documented in the HPI. ROS Other: All systems not noted in ROS Statement are negative. Constitutional: Denies: fever, chills Respiratory: Denies: cough, dyspnea Cardiovascular: Denies: chest pain, palpitations Gastrointestinal: Reports: as per HPI, abdominal pain. Denies: nausea, vomiting, diarrhea, constipation Genitourinary: Denies: dysuria, hematuria, discharge, abnormal menses Musculoskeletal: Denies: back pain Skin: Denies: rash Neurological: Denies: headache Past Medical History Past Medical History: Asthma Additional Past Medical History / Comment(s): ectopic preg History of Any Multi-Drug Resistant Organisms: None Reported Past Surgical History: Adenoidectomy, Cholecystectomy, Hernia Repair Additional Past Surgical History / Comment(s): PE tubes Past Psychological History: No Psychological Hx Reported Smoking Status: Former smoker Past Alcohol Use History: None Reported Past Drug Use History: Marijuana General Exam Limitations: no limitations General appearance: alert, in no apparent distress Head exam: Present: atraumatic, normocephalic Eye exam: Present: normal appearance. Absent: scleral icterus, conjunctival injection Respiratory exam: Present: normal lung sounds bilaterally. Absent: respiratory distress, wheezes, rales, rhonchi, stridor Cardiovascular Exam: Present: regular rate, normal rhythm, normal heart sounds. Absent: systolic murmur, diastolic murmur, rubs, gallop GI/Abdominal exam: Present: soft, normal bowel sounds. Absent: distended, tenderness, guarding, rebound, rigid, mass, pulsatile mass, hernia Extremities exam: Present: normal inspection, normal capillary refill. Absent: pedal edema, calf tenderness Back exam: Present: normal inspection. Absent: CVA tenderness (R), CVA tenderness (L) Neurological exam: Present: alert Skin exam: Present: warm, dry, intact, normal color. Absent: rash Course Vital Signs 07/10/20 07/10/20 22:43 23:58 Temperature 98.8 F 98.1 F Pulse Rate 91 86 Respiratory 20 18 Rate Blood Pressure 150/77 117/78 O2 Sat by Pulse 100 100 Oximetry Medical Decision Making - Medical Decision Making this patient is 35-year-old woman with some intermittent sharp stabbing right lower quadrant pains. On reevaluation, she is again not having pain and there is no tenderness on the exam. The patient's test is negative. We discussed appropriate further care and follow-up as well as return parameters. Patient given appendicitis warnings, but no tenderness on the exam. - Lab Data Result diagrams: 07/10/20 22:59 07/10/20 22:59 Lab Results 07/10/20 07/10/20 07/10/20 Range/Units 22:59 22:59 23:55 WBC 12.1 H (3.8-10.6) k/uL RBC 4.19 (3.80-5.40) m/uL Hgb 12.7 (11.4-16.0) gm/dL Hct 40.7 (34.0-46.0) % MCV 97.2 D (80.0-100.0) fL MCH 30.4 (25.0-35.0) pg MCHC 31.2 (31.0-37.0) g/dL RDW 13.1 (11.5-15.5) % Plt Count 293 (150-450) k/uL Neutrophils % 53 % Lymphocytes % 35 % Monocytes % 5 % Eosinophils % 5 % Basophils % 0 % Neutrophils # 6.4 (1.3-7.7) k/uL Lymphocytes # 4.3 (1.0-4.8) k/uL Monocytes # 0.6 (0-1.0) k/uL Eosinophils # 0.6 (0-0.7) k/uL Basophils # 0.0 (0-0.2) k/uL Sodium 139 (137-145) mmol/L Potassium 3.7 (3.5-5.1) mmol/L Chloride 109 H (98-107) mmol/L Carbon Dioxide 25 (22-30) mmol/L Anion Gap 5 mmol/L BUN 15 (7-17) mg/dL Creatinine 0.78 (0.52-1.04) mg/dL Est GFR (CKD-EPI)AfAm >90 (>60 ml/min/1.73 sqM) Est GFR (CKD-EPI)NonAf >90 (>60 ml/min/1.73 sqM) Glucose 95 (74-99) mg/dL Calcium 9.1 (8.4-10.2) mg/dL Total Bilirubin 0.2 (0.2-1.3) mg/dL AST 19 (14-36) U/L ALT 19 (4-34) U/L Alkaline Phosphatase 84 (38-126) U/L Total Protein 6.7 (6.3-8.2) g/dL Albumin 3.9 (3.5-5.0) g/dL Amylase 65 (30-110) U/L Lipase 142 (23-300) U/L HCG, Quant <2.4 mIU/mL Urine Color Yellow Urine Appearance Clear (Clear) Urine pH 6.5 (5.0-8.0) Ur Specific [place] 1.028 (1.001-1.035) Urine Protein Negative (Negative) Urine Glucose (UA) Negative (Negative) Urine Ketones Negative (Negative) Urine Blood Negative (Negative) Urine Nitrite Negative (Negative) Urine Bilirubin Negative (Negative) Urine Urobilinogen <2.0 (<2.0) mg/dL Ur Leukocyte Esterase Negative (Negative) Disposition Clinical Impression: Abdominal pain Disposition: HOME SELF-CARE Condition: Good Instructions (If sedation given, give patient instructions): Abdominal Pain (ED) Is patient prescribed a controlled substance at d/c from ED?: No Referrals: None,Stated [Primary Care Provider] - 1-2 days
[2020-07-10 23:59] VITALS: BP 117/78; PULSE 86; RESP 18; TEMP 98.1
[2020-07-11 00:02] LABS: Appearance,Urine Clear (Clear); Bilirubin,Urine Negative (Negative); Blood,Urine Negative (Negative); Color,Urine Yellow; Glucose,Urine (UA) Negative (Negative); Ketones,Urine Negative (Negative); Leukocyte Esterase,Urine Negative (Negative); Nitrite,Urine Negative (Negative); PH, Urine 6.5 (5.0-8.0); Protein,Urine Negative (Negative); Specific Gravity,Urine 1.028 (1.001-1.035); Urobilinogen,Urine <2.0 mg/dL (<2.0)
== END 2020-07-11 00:44 | disposition home or self-care (01) ==
LOC: EC 22:41
DX: R10.31 Right lower quadrant pain (principal); Z91.018 Allergy to other foods; Z88.5 Allergy status to narcotic agent; Z88.1 Allergy status to other antibiotic agents; Z91.013 Allergy to seafood; Z90.49 Acquired absence of other specified parts of digestive tract; Z87.891 Personal history of nicotine dependence
CPT/HCPCS: 36415; 80053; 81003; 82150; 83690; 84702; 85025; 99284

== ENCOUNTER 2020-11-06 17:30 | Emergency (ER) | payer OTHER ==
--- NOTE | 2020-11-06 18:10 | ED ---
Female Urogenital HPI - General Chief complaint: Urogenital Stated complaint: vaginal bleeding Time Seen by Provider: 11/06/20 17:41 Source: patient Mode of arrival: ambulatory Limitations: no limitations - History of Present Illness Initial comments: 35-year-old female presents having noticed a large golf ball size foreign body coming from the vaginal area while urinating. Patient states she noticed it in the toilet it was white and hard tissue-like. Patient states she's had no pain or cramping that is a few days late on her menstrual cycle. Patient took a negative test this morning. No abdominal pain no back pain. Patient did have a tubal reversal about 5 months ago. Patient has a history of 6 para 4. Patient has an ectopic as well. Patient states last month her mental cycle was slightly different as far as one might day in 2 days of heavy clots. Again no abdominal pain no fatigue no back pain no breast tenderness. Last Menstrual Period: 10/11/20 Patient : No (took neg preg this am) Associated Symptoms: other (large tisse like clot) - Related Data Previous Rx's Medication Instructions Recorded HYDROcodone/APAP 5-325MG [[place] 1 tab PO Q6HR PRN #12 tab 02/01/20 5-325] Penicillin V Potassium [Pen Vee K] 500 mg PO Q6H 10 Days #40 tablet 02/02/20 Amoxicillin 875 mg PO Q12HR #14 tablet 11/06/20 Allergies Allergy/AdvReac Type Severity Reaction Status Date / Time cashew nut Allergy Unknown Verified 11/06/20 17:35 codeine Allergy Chest Pain Verified 11/06/20 17:35 levofloxacin [From Levaquin] Allergy Anaphylaxis Verified 11/06/20 17:35 nitrofurantoin Allergy Anaphylaxis Verified 11/06/20 17:35 macrocrystalline [From Macrodantin] shellfish derived [Shellfish] Allergy Unknown Verified 11/06/20 17:35 Review of Systems ROS Statement: Those systems with pertinent positive or pertinent negative responses have been documented in the HPI. ROS Other: All systems not noted in ROS Statement are negative. Constitutional: Reports: as per HPI. Denies: fever Eyes: Reports: as per HPI ENT: Reports: as per HPI Endocrine: Reports: as per HPI Gastrointestinal: Reports: as per HPI Genitourinary: Reports: as per HPI, discharge, abnormal menses Skin: Reports: as per HPI Psychiatric: Reports: as per HPI Past Medical History Past Medical History: Asthma Additional Past Medical History / Comment(s): ectopic preg, History of Any Multi-Drug Resistant Organisms: None Reported Past Surgical History: Adenoidectomy, Cholecystectomy, Hernia Repair, Tubal Ligation Additional Past Surgical History / Comment(s): PE tubes, tubal- 2010, tubal reversal was 06/22. Past Psychological History: No Psychological Hx Reported Smoking Status: Former smoker Past Alcohol Use History: None Reported Past Drug Use History: Marijuana General Exam Limitations: no limitations General appearance: alert, in no apparent distress Respiratory exam: Present: normal lung sounds bilaterally. Absent: respiratory distress, wheezes, rales, rhonchi, stridor Cardiovascular Exam: Present: regular rate, normal rhythm, normal heart sounds. Absent: systolic murmur, diastolic murmur, rubs, gallop, clicks External exam: Present: normal external exam Speculum exam: Present: normal speculum exam, vaginal bleeding (slight bleeding from cervix noted, cultures taken) By manual exam: Present: normal by manual exam Back exam: Present: normal inspection Neurological exam: Present: alert, oriented X3 Psychiatric exam: Present: normal affect, normal mood Skin exam: Present: warm, dry, intact, normal color. Absent: rash Course Vital Signs 11/06/20 11/06/20 17:31 20:00 Temperature 98.6 F 98.4 F Pulse Rate 99 82 Respiratory 18 16 Rate Blood Pressure 128/72 130/68 O2 Sat by Pulse 97 99 Oximetry Medical Decision Making - Medical Decision Making Speculum exam was essentially negative some blood from the cervix noted cultures were taken patient tolerated well no pain with manual exam reviewed cbc and cmp wnl neg beta quant Reviewed transvaginal ultrasound showed thickened endometrium right ovarian cyst follow-up with COMPUTER SECURITY SPECIALIST Discussed with Dr. Boss - Lab Data Result diagrams: 11/06/20 19:29 11/06/20 19:29 Lab Results 11/06/20 11/06/20 11/06/20 Range/Units 18:01 18:01 19:29 WBC 10.7 H (3.8-10.6) k/uL RBC 4.06 (3.80-5.40) m/uL Hgb 12.6 (11.4-16.0) gm/dL Hct 37.2 (34.0-46.0) % MCV 91.7 (80.0-100.0) fL MCH 31.0 (25.0-35.0) pg MCHC 33.8 (31.0-37.0) g/dL RDW 12.8 (11.5-15.5) % Plt Count 241 (150-450) k/uL MPV 7.4 Neutrophils % 65 % Lymphocytes % 25 % Monocytes % 7 % Eosinophils % 1 % Basophils % 0 % Neutrophils # 7.0 (1.3-7.7) k/uL Lymphocytes # 2.7 (1.0-4.8) k/uL Monocytes # 0.8 (0-1.0) k/uL Eosinophils # 0.1 (0-0.7) k/uL Basophils # 0.0 (0-0.2) k/uL Sodium (137-145) mmol/L Potassium (3.5-5.1) mmol/L Chloride (98-107) mmol/L Carbon Dioxide (22-30) mmol/L Anion Gap mmol/L BUN (7-17) mg/dL Creatinine (0.52-1.04) mg/dL Est GFR (CKD-EPI)AfAm (>60 ml/min/1.73 sqM) Est GFR (CKD-EPI)NonAf (>60 ml/min/1.73 sqM) Glucose (74-99) mg/dL Calcium (8.4-10.2) mg/dL Total Bilirubin (0.2-1.3) mg/dL AST (14-36) U/L ALT (4-34) U/L Alkaline Phosphatase (38-126) U/L Total Protein (6.3-8.2) g/dL Albumin (3.5-5.0) g/dL HCG, Quant mIU/mL Urine Color Yellow Urine Appearance Cloudy H (Clear) Urine pH 6.0 (5.0-8.0) Ur Specific [place] 1.026 (1.001-1.035) Urine Protein Trace H (Negative) Urine Glucose (UA) Negative (Negative) Urine Ketones 1+ H (Negative) Urine Blood Small H (Negative) Urine Nitrite Negative (Negative) Urine Bilirubin Negative (Negative) Urine Urobilinogen <2.0 (<2.0) mg/dL Ur Leukocyte Esterase Moderate H (Negative) Urine RBC 4 (0-5) /hpf Urine WBC 4 (0-5) /hpf Ur Squamous Epith Cells 4 (0-4) /hpf Urine Mucus Many H (None) /hpf Urine Sperm Rare (None) /hpf Urine HCG, Qual Not Detected (Not Detectd) 11/06/20 Range/Units 19:29 WBC (3.8-10.6) k/uL RBC (3.80-5.40) m/uL Hgb (11.4-16.0) gm/dL Hct (34.0-46.0) % MCV (80.0-100.0) fL MCH (25.0-35.0) pg MCHC (31.0-37.0) g/dL RDW (11.5-15.5) % Plt Count (150-450) k/uL MPV Neutrophils % % Lymphocytes % % Monocytes % % Eosinophils % % Basophils % % Neutrophils # (1.3-7.7) k/uL Lymphocytes # (1.0-4.8) k/uL Monocytes # (0-1.0) k/uL Eosinophils # (0-0.7) k/uL Basophils # (0-0.2) k/uL Sodium 140 (137-145) mmol/L Potassium 3.5 (3.5-5.1) mmol/L Chloride 108 H (98-107) mmol/L Carbon Dioxide 24 (22-30) mmol/L Anion Gap 8 mmol/L BUN 15 (7-17) mg/dL Creatinine 0.51 L (0.52-1.04) mg/dL Est GFR (CKD-EPI)AfAm >90 (>60 ml/min/1.73 sqM) Est GFR (CKD-EPI)NonAf >90 (>60 ml/min/1.73 sqM) Glucose 86 (74-99) mg/dL Calcium 9.2 (8.4-10.2) mg/dL Total Bilirubin 0.4 (0.2-1.3) mg/dL AST 19 (14-36) U/L ALT 13 (4-34) U/L Alkaline Phosphatase 71 (38-126) U/L Total Protein 6.6 (6.3-8.2) g/dL Albumin 4.0 (3.5-5.0) g/dL HCG, Quant <2.4 mIU/mL Urine Color Urine Appearance (Clear) Urine pH (5.0-8.0) Ur Specific [place] (1.001-1.035) Urine Protein (Negative) Urine Glucose (UA) (Negative) Urine Ketones (Negative) Urine Blood (Negative) Urine Nitrite (Negative) Urine Bilirubin (Negative) Urine Urobilinogen (<2.0) mg/dL Ur Leukocyte Esterase (Negative) Urine RBC (0-5) /hpf Urine WBC (0-5) /hpf Ur Squamous Epith Cells (0-4) /hpf Urine Mucus (None) /hpf Urine Sperm (None) /hpf Urine HCG, Qual (Not Detectd) Disposition Clinical Impression: Urinary tract infection, Simple ovarian cyst, Thickened endometrium Disposition: HOME SELF-CARE Condition: Good Instructions (If sedation given, give patient instructions): Urinary Tract Infection in Women (ED) Prescriptions: Amoxicillin 875 mg PO Q12HR #14 tablet Is patient prescribed a controlled substance at d/c from ED?: No Referrals: None,Stated [Primary Care Provider] - 1-2 days Catrachito Rick MD [STAFF PHYSICIAN] - 1-2 days Time of Disposition: 20:49
[2020-11-06 18:20] LABS: Appearance,Urine Cloudy (Clear); Bilirubin,Urine Negative (Negative); Blood,Urine Small (Negative); Color,Urine Yellow; Glucose,Urine (UA) Negative (Negative); Ketones,Urine 1+ (Negative); Leukocyte Esterase,Urine Moderate (Negative); Mucus,Urine Many /hpf; Nitrite,Urine Negative (Negative); Protein,Urine Trace (Negative); RBC,Urine 4 /hpf (0-5); Specific Gravity,Urine 1.026 (1.001-1.035); Sperm,Urine Rare /hpf; Squamous Epithelial Cell,Urine 4 /hpf (0-4); Urobilinogen,Urine <2.0 mg/dL (<2.0); WBC,Urine 4 /hpf (0-5)
--- NOTE | 2020-11-06 19:36 | US ---
EXAMINATION TYPE: US transvaginal DATE OF EXAM: 11/06/2020 COMPARISON: Previous exam 05/22/2013 CLINICAL HISTORY: amennorhea, foreign body. Patient states passing large clump of tissue. No pain. TECHNIQUE: Transvaginal (TV). Date of LMP: 10/11/2020, EXAM MEASUREMENTS: Uterus: 10.0 x 5.4 x 5.3 cm Endometrial Stripe: 1.5 cm Right Ovary: 4.8 x 4.2 x 3.8 cm Left Ovary: 2.5 x 1.2 x 1.4 cm 1. Uterus: Anteverted Heterogenous 2. Endometrium: Upper limits of normal in size 3. Right Ovary: Complex cystic lesion = 4.7 x 4.0 x 3.2 cm 4. Left Ovary: wnl Spectral, color and waveform doppler imaging shows arterial and venous flow within the ovaries 5. Bilateral Adnexa: wnl 6. Posterior cul-de-sac: no free fluid IMPRESSION: Thickened heterogeneous endometrium and right ovarian cyst, consider INTERNAL [employer]OLES[employer]ER consult
[2020-11-06 20:04] LABS: Basophils % (A) 0 %; Eosinophils # (A) 0.1 k/uL (0-0.7); Eosinophils % (A) 1 %; HCT 37.2 % (34.0-46.0); HGB 12.6 gm/dL (11.4-16.0); Lymphocytes # (A) 2.7 k/uL (1.0-4.8); Lymphocytes % (A) 25 %; MCHC 33.8 g/dL (31.0-37.0); MCV 91.7 fL (80.0-100.0); Mean Platelet Volume 7.4; Monocytes # (A) 0.8 k/uL (0-1.0); Monocytes % (A) 7 %; Neutrophils % (A) 65 %; Platelet Count 241 k/uL (150-450); RBC 4.06 m/uL (3.80-5.40); RDW 12.8 % (11.5-15.5); WBC 10.7 k/uL (3.8-10.6)
[2020-11-06 20:14] LABS: ALT 13 U/L (4-34); AST 19 U/L (14-36); African American GFR (CKD) >90 (>60 ml/min/1.73 sqM); Alkaline Phosphatase 71 U/L (38-126); Anion Gap 8 mmol/L; Blood Urea Nitrogen 15 mg/dL (7-17); Calcium 9.2 mg/dL (8.4-10.2); Carbon Dioxide 24 mmol/L (22-30); Chloride 108 mmol/L (98-107); Glucose 86 mg/dL (74-99); Non-African American GFR(CKD) >90 (>60 ml/min/1.73 sqM); Potassium 3.5 mmol/L (3.5-5.1); Sodium 140 mmol/L (137-145); Total Bilirubin 0.4 mg/dL (0.2-1.3); Total Protein 6.6 g/dL (6.3-8.2)
[2020-11-06 20:25] VITALS: BP 130/68; PULSE 82; RESP 16; TEMP 98.4
[2020-11-06 20:29] LABS: HCG,Quantitative Serum <2.4 mIU/mL
[2020-11-09 12:46] LABS: C. trachomatis,PCR Negative (Neg,Equiv); Chlamydia trachomatis Source Cervix; N. gonorrhoeae,PCR Negative (Neg,Equiv); Neisseria Source Cervix
== END 2020-11-06 20:55 | disposition home or self-care (01) ==
LOC: EC 17:30
DX: N39.0 Urinary tract infection, site not specified (principal); N83.291 Other ovarian cyst, right side; R93.89 Abnormal findings on diagnostic imaging of other specified body structures; J45.909 Unspecified asthma, uncomplicated; Z87.891 Personal history of nicotine dependence; Z88.1 Allergy status to other antibiotic agents
CPT/HCPCS: 36415; 76830; 80053; 81001; 81025; 84702; 85025; 87070; 87491; 87591; 93975; 99284

== ENCOUNTER 2021-10-20 12:41 | Emergency (ER) | payer OTHER ==
[2021-10-20 13:24] VITALS: BP 98/51; PULSE 77; RESP 20; TEMP 99.2
[2021-10-20 14:11] LABS: Basophils % (A) 0 %; Eosinophils # (A) 0.3 k/uL (0-0.7); Eosinophils % (A) 3 %; HGB 13.3 gm/dL (11.4-16.0); Lymphocytes # (A) 2.9 k/uL (1.0-4.8); Lymphocytes % (A) 32 %; MCH 31.7 pg (25.0-35.0); MCHC 33.9 g/dL (31.0-37.0); MCV 93.4 fL (80.0-100.0); Mean Platelet Volume 7.4; Monocytes # (A) 0.5 k/uL (0-1.0); Monocytes % (A) 5 %; Neutrophils # (A) 5.3 k/uL (1.3-7.7); Neutrophils % (A) 58 %; Platelet Count 307 k/uL (150-450); RBC 4.18 m/uL (3.80-5.40); RDW 13.1 % (11.5-15.5); WBC 9.1 k/uL (3.8-10.6)
[2021-10-20 14:20] LABS: ALT 12 U/L (4-34); AST 13 U/L (14-36); African American GFR (CKD) >90 (>60 ml/min/1.73 sqM); Albumin 3.1 g/dL (3.5-5.0); Alkaline Phosphatase 54 U/L (38-126); Anion Gap 2 mmol/L; Blood Urea Nitrogen 12 mg/dL (7-17); Calcium 8.7 mg/dL (8.4-10.2); Carbon Dioxide 25 mmol/L (22-30); Chloride 110 mmol/L (98-107); Glucose 90 mg/dL (74-99); Non-African American GFR(CKD) >90 (>60 ml/min/1.73 sqM); Potassium 3.5 mmol/L (3.5-5.1); Sodium 137 mmol/L (137-145); Total Bilirubin 0.3 mg/dL (0.2-1.3); Total Protein 5.7 g/dL (6.3-8.2)
[2021-10-20 14:37] LABS: HCG,Quantitative Serum 139.7 mIU/mL
--- NOTE | 2021-10-20 14:55 | ED ---
General Adult HPI - General Chief complaint: Abdominal Pain Stated complaint: 5wks preg/bleeding Time Seen by Provider: 10/20/21 13:35 Source: patient, RN notes reviewed, old records reviewed Mode of arrival: ambulatory Limitations: no limitations - History of Present Illness Initial comments: 36-year-old female presents for evaluation of lower abdominal cramping in early . Patient's approximate 5 weeks. She has been to the emergency depart ment with early . She has previous history of tubal ligation status post reversal and a previous history of tubal . Patient had very minimal vaginal bleeding no significant abdominal pain just small amount of cramping. No cough or fever. No other symptoms. - Related Data Home Medications Medication Instructions Recorded Confirmed Albuterol Nebulized [Ventolin 2.5 mg INHALATION RT-Q4H PRN 10/18/21 10/18/21 Nebulized] Afc-Kbsw-Oyvnf Acid 1 cap PO DAILY 10/18/21 10/18/21 [-U Capsule (formulary)] Previous Rx's Medication Instructions Recorded predniSONE 30 mg PO DAILY 5 Days #5 tab 10/16/21 Cephalexin [Keflex] 500 mg PO Q12HR #20 cap 10/20/21 Allergies Allergy/AdvReac Type Severity Reaction Status Date / Time cashew nut Allergy Unknown Verified 10/20/21 13:24 codeine Allergy Chest Pain Verified 10/20/21 13:24 levofloxacin [From Levaquin] Allergy Anaphylaxis Verified 10/20/21 13:24 nitrofurantoin Allergy Anaphylaxis Verified 10/20/21 13:24 macrocrystalline [From Macrodantin] shellfish derived [Shellfish] Allergy Unknown Verified 10/20/21 13:24 Review of Systems ROS Statement: Those systems with pertinent positive or pertinent negative responses have been documented in the HPI. ROS Other: All systems not noted in ROS Statement are negative. Past Medical History Past Medical History: Asthma Additional Past Medical History / Comment(s): ectopic preg, History of Any Multi-Drug Resistant Organisms: None Reported Past Surgical History: Adenoidectomy, Cholecystectomy, Ear Surgery, Hernia Repair, Tubal Ligation Additional Past Surgical History / Comment(s): PE tubes, tubal- 2010, tubal reversal was 06/22. Past Psychological History: No Psychological Hx Reported Smoking Status: Former smoker Past Alcohol Use History: None Reported Past Drug Use History: None Reported General Exam Limitations: no limitations General appearance: alert, in no apparent distress Head exam: Present: atraumatic, normocephalic Eye exam: Present: normal appearance, PERRL ENT exam: Present: normal exam Neck exam: Present: normal inspection. Absent: tenderness, meningismus Respiratory exam: Present: normal lung sounds bilaterally. Absent: respiratory distress, wheezes Cardiovascular Exam: Present: regular rate, normal rhythm GI/Abdominal exam: Present: soft. Absent: distended, tenderness, guarding Extremities exam: Present: normal inspection, normal capillary refill. Absent: pedal edema Neurological exam: Present: alert, oriented X3, CN II-XII intact. Absent: motor sensory deficit Psychiatric exam: Present: normal affect, normal mood Skin exam: Present: warm, dry, intact. Absent: cyanosis, diaphoretic Course Vital Signs 10/20/21 13:21 Temperature 99.2 F Pulse Rate 77 Respiratory 20 Rate Blood Pressure 98/51 O2 Sat by Pulse 98 Oximetry Medical Decision Making - Medical Decision Making 36-year-old female with early concern for ectopic. Patient has a normal CBC. Normal CMP. She is very well-appearing without complaint, no abdominal pain or tenderness. Her beta hCG is low at 139 which does represent a doubling over the past 48 hours. She also has signs of an asymmetric bacteriuria in . Ultrasound is performed which does not visualize any intrauterine , no ectopic . Did inform the patient with possibility of a normal , threatened miscarriage, and possible ectopic . She will have repeat beta hCG in 48 hours additionally she'll be treated for the asymptomatic bacteriuria. She will follow up with obstetrics on Sunday which is planned. - Lab Data Result diagrams: 10/20/21 13:57 10/20/21 13:57 Lab Results 10/20/21 10/20/21 10/20/21 Range/Units 13:57 13:57 13:57 WBC 9.1 (3.8-10.6) k/uL RBC 4.18 (3.80-5.40) m/uL Hgb 13.3 (11.4-16.0) gm/dL Hct 39.0 (34.0-46.0) % MCV 93.4 (80.0-100.0) fL MCH 31.7 (25.0-35.0) pg MCHC 33.9 (31.0-37.0) g/dL RDW 13.1 (11.5-15.5) % Plt Count 307 (150-450) k/uL MPV 7.4 Neutrophils % 58 % Lymphocytes % 32 % Monocytes % 5 % Eosinophils % 3 % Basophils % 0 % Neutrophils # 5.3 (1.3-7.7) k/uL Lymphocytes # 2.9 (1.0-4.8) k/uL Monocytes # 0.5 (0-1.0) k/uL Eosinophils # 0.3 (0-0.7) k/uL Basophils # 0.0 (0-0.2) k/uL Sodium 137 (137-145) mmol/L Potassium 3.5 (3.5-5.1) mmol/L Chloride 110 H (98-107) mmol/L Carbon Dioxide 25 (22-30) mmol/L Anion Gap 2 mmol/L BUN 12 (7-17) mg/dL Creatinine 0.53 (0.52-1.04) mg/dL Est GFR (CKD-EPI)AfAm >90 (>60 ml/min/1.73 sqM) Est GFR (CKD-EPI)NonAf >90 (>60 ml/min/1.73 sqM) Glucose 90 (74-99) mg/dL Calcium 8.7 (8.4-10.2) mg/dL Total Bilirubin 0.3 (0.2-1.3) mg/dL AST 13 L (14-36) U/L ALT 12 (4-34) U/L Alkaline Phosphatase 54 (38-126) U/L Total Protein 5.7 L (6.3-8.2) g/dL Albumin 3.1 L (3.5-5.0) g/dL HCG, Quant 139.7 mIU/mL Urine Color Urine Appearance (Clear) Urine pH (5.0-8.0) Ur Specific [place] (1.001-1.035) Urine Protein (Negative) Urine Glucose (UA) (Negative) Urine Ketones (Negative) Urine Blood (Negative) Urine Nitrite (Negative) Urine Bilirubin (Negative) Urine Urobilinogen (<2.0) mg/dL Ur Leukocyte Esterase (Negative) Urine RBC (0-5) /hpf Urine WBC (0-5) /hpf Ur Squamous Epith Cells (0-4) /hpf Urine Bacteria (None) /hpf Urine Mucus (None) /hpf Blood Type O Positive Blood Type Recheck O Pos Bld Type Recheck Status No 10/20/21 Range/Units Unknown WBC (3.8-10.6) k/uL RBC (3.80-5.40) m/uL Hgb (11.4-16.0) gm/dL Hct (34.0-46.0) % MCV (80.0-100.0) fL MCH (25.0-35.0) pg MCHC (31.0-37.0) g/dL RDW (11.5-15.5) % Plt Count (150-450) k/uL MPV Neutrophils % % Lymphocytes % % Monocytes % % Eosinophils % % Basophils % % Neutrophils # (1.3-7.7) k/uL Lymphocytes # (1.0-4.8) k/uL Monocytes # (0-1.0) k/uL Eosinophils # (0-0.7) k/uL Basophils # (0-0.2) k/uL Sodium (137-145) mmol/L Potassium (3.5-5.1) mmol/L Chloride (98-107) mmol/L Carbon Dioxide (22-30) mmol/L Anion Gap mmol/L BUN (7-17) mg/dL Creatinine (0.52-1.04) mg/dL Est GFR (CKD-EPI)AfAm (>60 ml/min/1.73 sqM) Est GFR (CKD-EPI)NonAf (>60 ml/min/1.73 sqM) Glucose (74-99) mg/dL Calcium (8.4-10.2) mg/dL Total Bilirubin (0.2-1.3) mg/dL AST (14-36) U/L ALT (4-34) U/L Alkaline Phosphatase (38-126) U/L Total Protein (6.3-8.2) g/dL Albumin (3.5-5.0) g/dL HCG, Quant mIU/mL Urine Color Yellow Urine Appearance Cloudy H (Clear) Urine pH 7.0 (5.0-8.0) Ur Specific [place] 1.024 (1.001-1.035) Urine Protein Trace H (Negative) Urine Glucose (UA) Negative (Negative) Urine Ketones Negative (Negative) Urine Blood Moderate H (Negative) Urine Nitrite Negative (Negative) Urine Bilirubin Negative (Negative) Urine Urobilinogen <2.0 (<2.0) mg/dL Ur Leukocyte Esterase Large H (Negative) Urine RBC 1 (0-5) /hpf Urine WBC 7 H (0-5) /hpf Ur Squamous Epith Cells 6 H (0-4) /hpf Urine Bacteria Rare H (None) /hpf Urine Mucus Many H (None) /hpf Blood Type Blood Type Recheck Bld Type Recheck Status Disposition Clinical Impression: Threatened miscarriage in early Disposition: HOME SELF-CARE Condition: Good Instructions (If sedation given, give patient instructions): Threatened Miscarriage (ED), Abdominal Pain in (ED) Prescriptions: Cephalexin [Keflex] 500 mg PO Q12HR #20 cap Is patient prescribed a controlled substance at d/c from ED?: No Referrals: Nicolas Holm DO [Primary Care Provider] - 1-2 days Time of Disposition: 15:34
[2021-10-20 15:04] LABS: Appearance,Urine Cloudy (Clear); Bacteria,Urine Rare /hpf; Bilirubin,Urine Negative (Negative); Blood,Urine Moderate (Negative); Color,Urine Yellow; Glucose,Urine (UA) Negative (Negative); Ketones,Urine Negative (Negative); Leukocyte Esterase,Urine Large (Negative); Mucus,Urine Many /hpf; Nitrite,Urine Negative (Negative); Protein,Urine Trace (Negative); RBC,Urine 1 /hpf (0-5); Specific Gravity,Urine 1.024 (1.001-1.035); Squamous Epithelial Cell,Urine 6 /hpf (0-4); Urobilinogen,Urine <2.0 mg/dL (<2.0); WBC,Urine 7 /hpf (0-5)
--- NOTE | 2021-10-20 15:06 | US ---
EXAMINATION TYPE: Ultrasound OB <= 14 WEEKS FETUS DATE OF EXAM: 10/20/2021 2:29 PM COMPARISON: 10/18/2021 CLINICAL HISTORY: 35-year-old female Early . Spotting EXAM PERFORMED: Transabdominal (TA) FINDINGS: EXAM MEASUREMENTS: GESTATIONAL AGE / DATING Physician Established: Not yet established Dates by LMP: (4 weeks/6 days) EDC: 06/23/2022 Dates by First Scan: No IUP seen Dates by Current Scan for: No IUP seen MATERNAL ANATOMY Uterus: 8.8 x 4.6 x 6.3cm Right Ovary: 2.3 x 1.9 x 2.1cm Left Ovary: 3.5 x 2.3 x 2.9cm Post CDS / Adnexa: wnl Presence of free fluid: no Presence of corpus luteal cyst: left ovary: 2.2 x 1.8 x 2.5cm Presence of subchorionic bleed: no GESTATION / SURVEY IUP: No IUP seen at this time Date of LMP: 09/16/2021 Beta HcG (if available): Not available at time of exam IMPRESSION: 1. No visualized intrauterine . Appropriate follow-up recommended in the setting of a positi ve test. Differential considerations include too early to visualize intrauterine , nonvisualized ectopic , and failed . Correlate with beta-hCG values. 2. A left ovarian corpus luteum measuring 2.5 cm, increased from 2.0 cm, previously.
== END 2021-10-20 16:05 | disposition home or self-care (01) ==
LOC: EC 12:41
DX: O20.0 Threatened abortion (principal); O99.511 Diseases of the respiratory system complicating pregnancy, first trimester; J45.909 Unspecified asthma, uncomplicated; Z88.1 Allergy status to other antibiotic agents; Z88.5 Allergy status to narcotic agent; Z90.49 Acquired absence of other specified parts of digestive tract; Z98.51 Tubal ligation status; Z87.891 Personal history of nicotine dependence; Z3A.01 Less than 8 weeks gestation of pregnancy
CPT/HCPCS: 36415; 76801; 80053; 81001; 84702; 85025; 86900; 86901; 99284

== ENCOUNTER → 2021-10-22 | Outpatient (CLI) | payer OTHER | END | disposition home or self-care (01) | LOC: LABMAIN 09:16 | PROVIDERS: ATTEND Obstetrics & Gynecology | DX: O20.0 Threatened abortion (principal); Z3A.00 Weeks of gestation of pregnancy not specified | CPT/HCPCS: 84702 ==

== ENCOUNTER 2021-10-23 19:21 | Emergency (ER) | payer OTHER ==
[2021-10-23 19:29] VITALS: BP 119/72; PULSE 94; RESP 18; TEMP 99.2
[2021-10-23] MEDS ORDERED: SODIUM CHLORIDE 0.9% 1,000 ML IV ONE (20:25)
--- NOTE | 2021-10-23 20:35 | ED ---
General Adult HPI - General Chief complaint: Vaginal Bleeding Stated complaint: Vaginal bleeding-5 weeks preg. Time Seen by Provider: 10/23/21 19:52 Source: patient Mode of arrival: ambulatory Limitations: no limitations - History of Present Illness Initial comments: This 36-year-old female with past medical history of tubal ligation reversal and ectopic presents emergency Department 5 weeks with vaginal bleeding. Patient states her BUSINESS EXCELLENCE LEADER is Dr. Holm who instructed her to come to the emergency department for repeat quantitative beta serum hCG along with the transvaginal ultrasound. Patient states she does have her first OB appointment with him on Sunday. Patient states 2 days ago she did notice a little bit of light-pink on toilet paper when she wiped. She states it resolved after one time of wiping, however, today patient states she did have a little bit of light pink on the toilet paper again after urinating 2 times. Patient states she has been having some mild abdominal cramping over the last couple of weeks, however states it is nothing unusual. Patient states she is currently taking Keflex for her UTI. Patient states she is unsure if her is intrauterine or ectopic. Patient denies any chest pain, shortness of breath, abdominal pain, nausea, vomiting, back pain, headache, change in vision, blurred vision, change in bowel or bladder. - Related Data Home Medications Medication Instructions Recorded Confirmed Albuterol Nebulized [Ventolin 2.5 mg INHALATION RT-Q4H PRN 10/18/21 10/18/21 Nebulized] Cqv-Siho-Udnts Acid 1 cap PO DAILY 10/18/21 10/18/21 [-U Capsule (formulary)] Previous Rx's Medication Instructions Recorded predniSONE 30 mg PO DAILY 5 Days #5 tab 10/16/21 Cephalexin [Keflex] 500 mg PO Q12HR #20 cap 10/20/21 Allergies Allergy/AdvReac Type Severity Reaction Status Date / Time cashew nut Allergy Unknown Verified 10/23/21 19:29 codeine Allergy Chest Pain Verified 10/23/21 19:29 levofloxacin [From Levaquin] Allergy Anaphylaxis Verified 10/23/21 19:29 nitrofurantoin Allergy Anaphylaxis Verified 10/23/21 19:29 macrocrystalline [From Macrodantin] shellfish derived [Shellfish] Allergy Unknown Verified 10/23/21 19:29 Review of Systems ROS Statement: Those systems with pertinent positive or pertinent negative responses have been documented in the HPI. ROS Other: All systems not noted in ROS Statement are negative. Past Medical History Past Medical History: Asthma Additional Past Medical History / Comment(s): ectopic preg, History of Any Multi-Drug Resistant Organisms: None Reported Past Surgical History: Adenoidectomy, Cholecystectomy, Ear Surgery, Hernia Repair, Tubal Ligation Additional Past Surgical History / Comment(s): PE tubes, tubal- 2010, tubal reversal was 06/22. Past Psychological History: No Psychological Hx Reported Smoking Status: Former smoker Past Alcohol Use History: None Reported Past Drug Use History: None Reported General Exam Limitations: no limitations General appearance: alert, in no apparent distress Head exam: Present: atraumatic, normocephalic Eye exam: Present: normal appearance, PERRL, EOMI Pupils: Present: normal accommodation ENT exam: Present: mucous membranes moist Neck exam: Present: full ROM Respiratory exam: Present: normal lung sounds bilaterally, wheezes (Mild wheezing in left lung, patient states she does have asthma and this is her baseline. Patient denies any shortness of breath). Absent: respiratory distress, rales, rhonchi, stridor Cardiovascular Exam: Present: regular rate, normal rhythm, normal heart sounds. Absent: systolic murmur, diastolic murmur, rubs, gallop, clicks GI/Abdominal exam: Present: soft, normal bowel sounds. Absent: distended, tenderness, guarding, rebound, rigid Speculum exam: Present: other (Patient refuses speculum/pelvic exam. Patient stated "All you will see some light bleeding, transvaginal ultrasound should be enough." I did inform I would go to see the cervix and if it was closed, open or bleeding, however she still refused. ) Extremities exam: Present: full ROM. Absent: tenderness, normal capillary refill, pedal edema, joint swelling, calf tenderness Back exam: Present: normal inspection, full ROM. Absent: tenderness, CVA tenderness (R), CVA tenderness (L), paraspinal tenderness, vertebral tenderness Neurological exam: Present: alert, oriented X3, CN II-XII intact Psychiatric exam: Present: normal affect, normal mood Skin exam: Present: warm, dry, intact, normal color. Absent: rash Course Vital Signs 10/23/21 19:25 Temperature 99.2 F Pulse Rate 94 Respiratory 18 Rate Blood Pressure 119/72 O2 Sat by Pulse 98 Oximetry Medical Decision Making - Medical Decision Making This 36-year-old female who is 5 weeks presents to the emergency depar tment with minimal vaginal bleeding today. Labs unremarkable. Patient denies any symptoms of urinary tract infection, however she is being treated for a UTI by her BUSINESS EXCELLENCE LEADER. Patient's blood type is O+ therefore she does not need RhoGAM injection. Patient did receive transabdominal ultrasound and did request transvaginal due to her having a past ectopic . Patient did refuse speculum/pelvic exam. Transabdominal and transvaginal ultrasound did not see an intrauterine . Uterus was empty. 2 cm cyst on left ovary was present. Patient instructed to follow up with her BUSINESS EXCELLENCE LEADER at her appointment that she has on Sunday. Patient verbally agreed to plan. Strict return precautions were discussed. Patient sent home in stable condition. Case discussed with my attending, . - Lab Data Result diagrams: 10/23/21 20:41 10/23/21 20:41 Lab Results 10/23/21 10/23/21 10/23/21 Range/Units 20:41 20:41 20:41 WBC 10.2 (3.8-10.6) k/uL RBC 4.13 (3.80-5.40) m/uL Hgb 13.1 (11.4-16.0) gm/dL Hct 38.9 (34.0-46.0) % MCV 94.3 (80.0-100.0) fL MCH 31.7 (25.0-35.0) pg MCHC 33.6 (31.0-37.0) g/dL RDW 13.1 (11.5-15.5) % Plt Count 307 (150-450) k/uL MPV 7.6 Neutrophils % 57 % Lymphocytes % 33 % Monocytes % 5 % Eosinophils % 4 % Basophils % 1 % Neutrophils # 5.8 (1.3-7.7) k/uL Lymphocytes # 3.4 (1.0-4.8) k/uL Monocytes # 0.5 (0-1.0) k/uL Eosinophils # 0.4 (0-0.7) k/uL Basophils # 0.1 (0-0.2) k/uL Sodium (137-145) mmol/L Potassium (3.5-5.1) mmol/L Chloride (98-107) mmol/L Carbon Dioxide (22-30) mmol/L Anion Gap mmol/L BUN (7-17) mg/dL Creatinine (0.52-1.04) mg/dL Est GFR (CKD-EPI)AfAm (>60 ml/min/1.73 sqM) Est GFR (CKD-EPI)NonAf (>60 ml/min/1.73 sqM) Glucose (74-99) mg/dL Calcium (8.4-10.2) mg/dL Total Bilirubin (0.2-1.3) mg/dL AST (14-36) U/L ALT (4-34) U/L Alkaline Phosphatase (38-126) U/L Total Protein (6.3-8.2) g/dL Albumin (3.5-5.0) g/dL HCG, Quant mIU/mL Urine Color Yellow Urine Appearance Cloudy H (Clear) Urine pH 8.0 (5.0-8.0) Ur Specific [place] 1.032 (1.001-1.035) Urine Protein 1+ H (Negative) Urine Glucose (UA) Negative (Negative) Urine Ketones Trace H (Negative) Urine Blood Large H (Negative) Urine Nitrite Negative (Negative) Urine Bilirubin Negative (Negative) Urine Urobilinogen 2.0 (<2.0) mg/dL Ur Leukocyte Esterase Small H (Negative) Urine RBC 30 H (0-5) /hpf Urine WBC 4 (0-5) /hpf Ur Squamous Epith Cells 7 H (0-4) /hpf Urine Bacteria Occasional H (None) /hpf Urine Mucus Many H (None) /hpf Urine HCG, Qual Detected (Not Detectd) Blood Type Blood Type Recheck Bld Type Recheck Status Antibody Screen Spec Expiration Date 10/23/21 10/23/21 Range/Units 20:41 20:41 WBC (3.8-10.6) k/uL RBC (3.80-5.40) m/uL Hgb (11.4-16.0) gm/dL Hct (34.0-46.0) % MCV (80.0-100.0) fL MCH (25.0-35.0) pg MCHC (31.0-37.0) g/dL RDW (11.5-15.5) % Plt Count (150-450) k/uL MPV Neutrophils % % Lymphocytes % % Monocytes % % Eosinophils % % Basophils % % Neutrophils # (1.3-7.7) k/uL Lymphocytes # (1.0-4.8) k/uL Monocytes # (0-1.0) k/uL Eosinophils # (0-0.7) k/uL Basophils # (0-0.2) k/uL Sodium 137 (137-145) mmol/L Potassium 3.8 (3.5-5.1) mmol/L Chloride 110 H (98-107) mmol/L Carbon Dioxide 23 (22-30) mmol/L Anion Gap 4 mmol/L BUN 15 (7-17) mg/dL Creatinine 0.61 (0.52-1.04) mg/dL Est GFR (CKD-EPI)AfAm >90 (>60 ml/min/1.73 sqM) Est GFR (CKD-EPI)NonAf >90 (>60 ml/min/1.73 sqM) Glucose 100 H (74-99) mg/dL Calcium 8.6 (8.4-10.2) mg/dL Total Bilirubin 0.2 (0.2-1.3) mg/dL AST 18 (14-36) U/L ALT 15 (4-34) U/L Alkaline Phosphatase 66 (38-126) U/L Total Protein 6.1 L (6.3-8.2) g/dL Albumin 3.5 (3.5-5.0) g/dL HCG, Quant 392.8 mIU/mL Urine Color Urine Appearance (Clear) Urine pH (5.0-8.0) Ur Specific [place] (1.001-1.035) Urine Protein (Negative) Urine Glucose (UA) (Negative) Urine Ketones (Negative) Urine Blood (Negative) Urine Nitrite (Negative) Urine Bilirubin (Negative) Urine Urobilinogen (<2.0) mg/dL Ur Leukocyte Esterase (Negative) Urine RBC (0-5) /hpf Urine WBC (0-5) /hpf Ur Squamous Epith Cells (0-4) /hpf Urine Bacteria (None) /hpf Urine Mucus (None) /hpf Urine HCG, Qual (Not Detectd) Blood Type O Positive Blood Type Recheck O Pos Bld Type Recheck Status No Antibody Screen NEGATIVE Spec Expiration Date 10/26/2021 - 2340 Disposition Clinical Impression: Threatened miscarriage in early Disposition: HOME SELF-CARE Condition: Stable Instructions (If sedation given, give patient instructions): Threatened Miscarriage (ED) Additional Instructions: This follow-up with her [employer]CELLENCE LEADER appointment on 10/25/2021. Please return to emergency department with any new, worsening, or concerning symptoms. Pelvic rest until you speak with your provider at your appointment on Sunday. Is patient prescribed a controlled substance at d/c from ED?: No Referrals: None,Stated [Primary Care Provider] - 1-2 days Time of Disposition: 23:01 Decision Time: 22:23
[2021-10-23 20:54] LABS: Basophils # (A) 0.1 k/uL (0-0.2); Basophils % (A) 1 %; Eosinophils # (A) 0.4 k/uL (0-0.7); Eosinophils % (A) 4 %; HCT 38.9 % (34.0-46.0); HGB 13.1 gm/dL (11.4-16.0); Lymphocytes # (A) 3.4 k/uL (1.0-4.8); Lymphocytes % (A) 33 %; MCH 31.7 pg (25.0-35.0); MCHC 33.6 g/dL (31.0-37.0); MCV 94.3 fL (80.0-100.0); Mean Platelet Volume 7.6; Monocytes # (A) 0.5 k/uL (0-1.0); Monocytes % (A) 5 %; Neutrophils # (A) 5.8 k/uL (1.3-7.7); Neutrophils % (A) 57 %; Platelet Count 307 k/uL (150-450); RBC 4.13 m/uL (3.80-5.40); RDW 13.1 % (11.5-15.5); WBC 10.2 k/uL (3.8-10.6)
[2021-10-23 20:59] LABS: Appearance,Urine Cloudy (Clear); Bacteria,Urine Occasional /hpf; Bilirubin,Urine Negative (Negative); Blood,Urine Large (Negative); Color,Urine Yellow; Glucose,Urine (UA) Negative (Negative); Ketones,Urine Trace (Negative); Leukocyte Esterase,Urine Small (Negative); Mucus,Urine Many /hpf; Nitrite,Urine Negative (Negative); Protein,Urine 1+ (Negative); RBC,Urine 30 /hpf (0-5); Specific Gravity,Urine 1.032 (1.001-1.035); Squamous Epithelial Cell,Urine 7 /hpf (0-4); WBC,Urine 4 /hpf (0-5)
[2021-10-23 21:09] LABS: ALT 15 U/L (4-34); AST 18 U/L (14-36); African American GFR (CKD) >90 (>60 ml/min/1.73 sqM); Albumin 3.5 g/dL (3.5-5.0); Alkaline Phosphatase 66 U/L (38-126); Anion Gap 4 mmol/L; Blood Urea Nitrogen 15 mg/dL (7-17); Calcium 8.6 mg/dL (8.4-10.2); Carbon Dioxide 23 mmol/L (22-30); Chloride 110 mmol/L (98-107); Glucose 100 mg/dL (74-99); Non-African American GFR(CKD) >90 (>60 ml/min/1.73 sqM); Potassium 3.8 mmol/L (3.5-5.1); Sodium 137 mmol/L (137-145); Total Bilirubin 0.2 mg/dL (0.2-1.3); Total Protein 6.1 g/dL (6.3-8.2)
[2021-10-23 21:24] LABS: HCG,Quantitative Serum 392.8 mIU/mL
--- NOTE | 2021-10-23 21:37 | US ---
EXAMINATION TYPE: Transabdominal DATE OF EXAM: 10/23/2021 9:20 PM COMPARISON: CLINICAL HISTORY: r/o ectopic, vaginal bleeding. spotting, hx right tube ectopic EXAM PERFORMED: Transabdominal (TA) EXAM MEASUREMENTS: GESTATIONAL AGE / DATING Physician Established: Not yet established Dates by LMP: ( 5 weeks/2 days) EDC: 06/23/2022 Dates by Current Scan for: No IUP seen at this time MATERNAL ANATOMY Uterus: 9.4 x 5.5 x 4.8 cm Right Ovary: 3.0 x 2.1 x 1.6 cm Left Ovary: 3.5 x 2.1 x 2.4 cm Post CDS / Adnexa: no free fluid Presence of free fluid: no Presence of corpus luteal cyst: left ovary = 2.1 x 1.8 x 1.9 cm GESTATION / SURVEY IUP: No IUP seen at this time Endometrium = 1.5 cm Date of LMP: 09/16/2021 Beta HcG (if available): 10/22/2021- 266.7 10/23/2021- 392.8 No GS, YS or CRL seen. Endometrium appears thickened. Left ovarian corpus luteal cyst. IMPRESSION: No adnexal mass. Empty uterus. 2 cm cyst on the left ovary.
--- NOTE | 2021-10-23 22:58 | US ---
EXAMINATION TYPE: Transabdominal DATE OF EXAM: 10/23/2021 10:19 PM COMPARISON: CLINICAL HISTORY: r/o ectopic. Transabdominal US performed recently today. Patient requested transva ginal. EXAM PERFORMED: Transabdominal (TA) EXAM MEASUREMENTS: GESTATIONAL AGE / DATING Physician Established: Not yet established Dates by LMP: ( 5 weeks/2 days) EDC: 06/23/2022 Dates by Current Scan for: No IUP seen at this time MATERNAL ANATOMY Uterus: 9.8 x 5.6 x 5.0 cm Right Ovary: 2.8 x 1.5 x 1.9 cm Left Ovary: 2.8 x 2.7 x 2.3 cm Post CDS / Adnexa: no free fluid Presence of free fluid: no Presence of corpus luteal cyst: left ovary = 2.0 x 2.1 x 1.6 cm GESTATION / SURVEY IUP: No IUP seen at this time Endometrium = 1.8 cm Date of LMP: 09/16/2021 Beta HcG (if available): 10/22/2021- 266.7 10/23/2021- 392.8 No GS, YS or CRL seen. Endometrium appears thickened. Left ovarian corpus luteal cyst. IMPRESSION: The uterus is empty. No adnexal mass or free fluid. No evidence of a gestational sac. Simple cyst on the left ovary.
== END 2021-10-23 23:17 | disposition home or self-care (01) ==
LOC: EC 19:21
DX: O20.0 Threatened abortion (principal); O34.81 Maternal care for other abnormalities of pelvic organs, first trimester; N83.202 Unspecified ovarian cyst, left side; O99.511 Diseases of the respiratory system complicating pregnancy, first trimester; J45.909 Unspecified asthma, uncomplicated; Z87.891 Personal history of nicotine dependence; Z79.51 Long term (current) use of inhaled steroids; Z79.52 Long term (current) use of systemic steroids; Z3A.01 Less than 8 weeks gestation of pregnancy
CPT/HCPCS: 36415; 76801; 76817; 80053; 81001; 81025; 84702; 85025; 86850; 86900; 86901; 96360; 99284

== ENCOUNTER → 2021-10-25 | Outpatient (CLI) | payer OTHER | END | disposition home or self-care (01) | LOC: LABWHC1 16:34 | PROVIDERS: ATTEND Obstetrics & Gynecology | DX: O20.0 Threatened abortion (principal); Z3A.00 Weeks of gestation of pregnancy not specified | CPT/HCPCS: 36415; 84702 ==

== ENCOUNTER 2021-10-29 15:12 | Emergency (ER) | payer OTHER ==
--- NOTE | 2021-10-29 16:17 | ED ---
General Adult HPI - General Chief complaint: Vaginal Bleeding Stated complaint: 6wks preg/bleeding Time Seen by Provider: 10/29/21 16:05 Source: patient, RN notes reviewed, old records reviewed Mode of arrival: ambulatory Limitations: no limitations - History of Present Illness Initial comments: Well-appearing 36-year-old female presents to the emergency room with vaginal spotting. She states that she is approximately 6 weeks. She was here on November 20 for vaginal bleeding and cramping was told there was no IUP on ultrasound and it was too early. Her beta Quant at that time was 392. She had a repeat beta drawn on October 25 and it was down to 323. Patient states that she has had a couple episodes of vaginal bleeding only when she wipes on the paper. She is not passing any clots and she has had no cramping or pain. She does have appointment with her PRODUCTION SUPPORT SPECIALIST on Sunday -: week(s) (1) Severity scale (1-10): 0 Associated Symptoms: denies other symptoms Treatments Prior to Arrival: none - Related Data Home Medications Medication Instructions Recorded Confirmed Ondansetron Odt [Zofran Odt] 4 mg PO Q6H PRN 10/29/21 10/29/21 Allergies Allergy/AdvReac Type Severity Reaction Status Date / Time cashew nut Allergy Unknown Verified 10/29/21 17:31 codeine Allergy Chest Pain Verified 10/29/21 17:31 levofloxacin [From Levaquin] Allergy Anaphylaxis Verified 10/29/21 17:31 nitrofurantoin Allergy Anaphylaxis Verified 10/29/21 17:31 macrocrystalline [From Macrodantin] shellfish derived [Shellfish] Allergy Unknown Verified 10/29/21 17:31 Review of Systems ROS Statement: Those systems with pertinent positive or pertinent negative responses have been documented in the HPI. ROS Other: All systems not noted in ROS Statement are negative. Past Medical History Past Medical History: Asthma Additional Past Medical History / Comment(s): ectopic preg, History of Any Multi-Drug Resistant Organisms: None Reported Past Surgical History: Adenoidectomy, Cholecystectomy, Ear Surgery, Hernia Repair, Tubal Ligation Additional Past Surgical History / Comment(s): PE tubes, tubal- 2010, tubal reversal was 06/22. Past Psychological History: No Psychological Hx Reported Smoking Status: Former smoker Past Alcohol Use History: None Reported Past Drug Use History: None Reported General Exam Limitations: no limitations General appearance: alert, in no apparent distress Head exam: Present: atraumatic Respiratory exam: Present: normal lung sounds bilaterally. Absent: respiratory distress, chest wall tenderness, accessory muscle use Cardiovascular Exam: Present: regular rate, normal heart sounds GI/Abdominal exam: Present: soft. Absent: tenderness Back exam: Absent: tenderness, CVA tenderness (R), CVA tenderness (L) Neurological exam: Present: alert, oriented X3 Psychiatric exam: Present: normal affect, normal mood, anxious Skin exam: Present: warm, dry, normal color. Absent: cyanosis, diaphoretic, pallor Course Vital Signs 10/29/21 10/29/21 10/29/21 15:28 18:06 20:31 Temperature 97.7 F 98.4 F Pulse Rate 82 76 82 Respiratory 20 14 22 Rate Blood Pressure 127/77 134/100 136/94 O2 Sat by Pulse 98 99 100 Oximetry Medical Decision Making - Medical Decision Making Patient presents with vaginal bleeding in . She was seen November 20 for vaginal bleeding and cramping no IUP on ultrasound. BHCG at that time was 392. Repeat beta on October 25 was 323. BHCG is 471 today. Ultrasound shows a small intrauterine cystic structure without evidence for yolk sac or pole at this time. This may represent an early gestational sac. Patient denies any pain. Blood type is O+. Vital signs are stable. Hemoglobin and hematocrit are stable. She does have appointment with her PRODUCTION SUPPORT SPECIALIST on Sunday. She was directed to keep that appointment and return to the emergency room with any new or worsening symptoms cutting a piece pain or bleeding. Patient is agreeable to this plan of care. Case discussed with Dr. Boss. - Lab Data Result diagrams: 10/29/21 16:20 Lab Results 10/29/21 10/29/21 10/29/21 Range/Units 16:20 16:20 16:20 WBC 10.4 (3.8-10.6) k/uL RBC 4.04 (3.80-5.40) m/uL Hgb 12.9 (11.4-16.0) gm/dL Hct 38.6 (34.0-46.0) % MCV 95.7 (80.0-100.0) fL MCH 31.8 (25.0-35.0) pg MCHC 33.3 (31.0-37.0) g/dL RDW 13.0 (11.5-15.5) % Plt Count 272 (150-450) k/uL MPV 7.7 Neutrophils % 64 % Lymphocytes % 28 % Monocytes % 4 % Eosinophils % 2 % Basophils % 0 % Neutrophils # 6.7 (1.3-7.7) k/uL Lymphocytes # 2.9 (1.0-4.8) k/uL Monocytes # 0.5 (0-1.0) k/uL Eosinophils # 0.2 (0-0.7) k/uL Basophils # 0.1 (0-0.2) k/uL HCG, Quant 471.1 mIU/mL Urine Color Yellow Urine Appearance Clear (Clear) Urine pH 6.0 (5.0-8.0) Ur Specific [place] 1.031 (1.001-1.035) Urine Protein Trace H (Negative) Urine Glucose (UA) Negative (Negative) Urine Ketones Negative (Negative) Urine Blood Large H (Negative) Urine Nitrite Negative (Negative) Urine Bilirubin Negative (Negative) Urine Urobilinogen <2.0 (<2.0) mg/dL Ur Leukocyte Esterase Small H (Negative) Urine RBC 27 H (0-5) /hpf Urine WBC 2 (0-5) /hpf Ur Squamous Epith Cells 7 H (0-4) /hpf Urine Mucus Many H (None) /hpf Disposition Clinical Impression: Vaginal bleeding affecting early Disposition: HOME SELF-CARE Condition: Good Instructions (If sedation given, give patient instructions): Threatened Miscarriage (ED) Additional Instructions: Follow-up with Dr. Holm next week. return to the emergency room with any new or concerning symptoms. Is patient prescribed a controlled substance at d/c from ED?: No Referrals: None,Stated [Primary Care Provider] - 1-2 days Time of Disposition: 20:28
[2021-10-29 16:40] LABS: Basophils # (A) 0.1 k/uL (0-0.2); Basophils % (A) 0 %; Eosinophils # (A) 0.2 k/uL (0-0.7); Eosinophils % (A) 2 %; HCT 38.6 % (34.0-46.0); HGB 12.9 gm/dL (11.4-16.0); Lymphocytes # (A) 2.9 k/uL (1.0-4.8); Lymphocytes % (A) 28 %; MCH 31.8 pg (25.0-35.0); MCHC 33.3 g/dL (31.0-37.0); MCV 95.7 fL (80.0-100.0); Mean Platelet Volume 7.7; Monocytes # (A) 0.5 k/uL (0-1.0); Monocytes % (A) 4 %; Neutrophils # (A) 6.7 k/uL (1.3-7.7); Neutrophils % (A) 64 %; Platelet Count 272 k/uL (150-450); RBC 4.04 m/uL (3.80-5.40); WBC 10.4 k/uL (3.8-10.6)
[2021-10-29 16:44] LABS: Appearance,Urine Clear (Clear); Bilirubin,Urine Negative (Negative); Blood,Urine Large (Negative); Color,Urine Yellow; Glucose,Urine (UA) Negative (Negative); Ketones,Urine Negative (Negative); Leukocyte Esterase,Urine Small (Negative); Mucus,Urine Many /hpf; Nitrite,Urine Negative (Negative); Protein,Urine Trace (Negative); RBC,Urine 27 /hpf (0-5); Specific Gravity,Urine 1.031 (1.001-1.035); Squamous Epithelial Cell,Urine 7 /hpf (0-4); Urobilinogen,Urine <2.0 mg/dL (<2.0); WBC,Urine 2 /hpf (0-5)
[2021-10-29] MEDS: SODIUM CHLORIDE 0.9% 500 ML 500 ML IV ONE (18:03)
[2021-10-29 18:09] VITALS: TEMP 98.4
--- NOTE | 2021-10-29 19:56 | US ---
EXAMINATION TYPE: Transabdominal DATE OF EXAM: 10/29/2021 6:10 PM COMPARISON: NONE CLINICAL HISTORY: 6 weeks preg bleeding. EXAM PERFORMED: Transvaginal (TV) and Transabdominal (TA) EXAM MEASUREMENTS: Uterus: 10.4 x 6.2 x 5.1cm; endometrial thickness = 1.1cm; small Nabothian Cysts seen in cervix. Cyst ic structure within the endometrium measuring 4 mm without definitive yolk sac or pole. Right Ovary: 2.0 x 2.2 x 1.3cm Left Ovary: 3.0 x 3.2 x 3.3cm Post CDS / Adnexa: wnl Presence of free fluid: no Presence of corpus luteal cyst: in left ovary seen as complex cyst with peripheral ring of color flow = 2.9x 2.0 x 1.7cm Presence of subchorionic bleed: no IMPRESSION: 1. Small anechoic intrauterine cystic structure without evidence for yolk sac or pole at this t guicho. This is thought to represent an early gestational sac if there is a positive beta-hCG. Follow-up with pelvic ultrasound in 7-10 days and serial beta-hCG studies are recommended to en sure further d evelopment of the fetus.
[2021-10-29 20:32] VITALS: BP 136/94; PULSE 82; RESP 22
== END 2021-10-29 20:52 | disposition home or self-care (01) ==
LOC: EC 15:12
DX: O20.9 Hemorrhage in early pregnancy, unspecified (principal); Z3A.01 Less than 8 weeks gestation of pregnancy; J45.909 Unspecified asthma, uncomplicated; Z87.891 Personal history of nicotine dependence
CPT/HCPCS: 36415; 76801; 76817; 81001; 84702; 85025; 96360; 96361; 99284

== ENCOUNTER → 2021-10-31 | Outpatient (CLI) | payer OTHER ==
[2021-10-31 23:24] LABS: Basophils # (A) 0.03 X 10*3/uL (0.00-0.10); Basophils % (A) 0.3 %; Eosinophils # (A) 0.24 X 10*3/uL (0.04-0.35); Eosinophils % (A) 2.1 %; HCT 35.9 % (37.2-46.3); HGB 11.4 g/dL (12.0-15.0); Immature Grans, Automated 0.6 %; Lymphocytes # (A) 2.97 X 10*3/uL (0.90-5.00); Lymphocytes % (A) 26.5 %; MCH 29.9 pg (27.0-32.0); MCHC 31.8 g/dL (32.0-37.0); MCV 94.2 fL (80.0-97.0); Mean Platelet Volume 10.8 fL (9.5-12.2); Monocytes # (A) 0.84 X 10*3/uL (0.20-1.00); Monocytes % (A) 7.5 %; NRBC Per 100 WBC 0 /100 WBCS (0.0-0.0); Neutrophils # (A) 7.05 X 10*3/uL (1.80-7.70); Platelet Count 260 X 10*3/uL (140-440); RBC 3.81 X 10*6/uL (4.10-5.20)
== END | disposition home or self-care (01) ==
LOC: LABWHC1 15:49
PROVIDERS: ATTEND Obstetrics & Gynecology
DX: O20.0 Threatened abortion (principal); Z3A.00 Weeks of gestation of pregnancy not specified
CPT/HCPCS: 36415; 84702; 85025

== ENCOUNTER → 2021-11-02 | Outpatient (CLI) | payer OTHER | END | disposition home or self-care (01) | LOC: LABWHC1 11:27 | PROVIDERS: ATTEND Obstetrics & Gynecology | DX: O20.0 Threatened abortion (principal); Z3A.00 Weeks of gestation of pregnancy not specified | CPT/HCPCS: 36415; 84702 ==

== ENCOUNTER 2021-11-06 19:16 | Emergency (ER) | payer OTHER ==
[2021-11-06 19:26] VITALS: RESP 18; TEMP 97.8
[2021-11-06 20:06] LABS: Basophils % (A) 0 %; Eosinophils # (A) 0.3 k/uL (0-0.7); Eosinophils % (A) 2 %; HCT 36.4 % (34.0-46.0); HGB 12.1 gm/dL (11.4-16.0); Lymphocytes # (A) 2.5 k/uL (1.0-4.8); Lymphocytes % (A) 22 %; MCH 31.7 pg (25.0-35.0); MCHC 33.2 g/dL (31.0-37.0); MCV 95.5 fL (80.0-100.0); Mean Platelet Volume 7.8; Monocytes # (A) 0.6 k/uL (0-1.0); Monocytes % (A) 5 %; Neutrophils % (A) 70 %; Platelet Count 242 k/uL (150-450); RBC 3.81 m/uL (3.80-5.40); RDW 12.6 % (11.5-15.5); WBC 11.5 k/uL (3.8-10.6)
[2021-11-06 20:23] LABS: ALT 21 U/L (4-34); AST 21 U/L (14-36); African American GFR (CKD) >90 (>60 ml/min/1.73 sqM); Albumin 3.4 g/dL (3.5-5.0); Alkaline Phosphatase 73 U/L (38-126); Anion Gap 5 mmol/L; Blood Urea Nitrogen 10 mg/dL (7-17); Calcium 8.6 mg/dL (8.4-10.2); Carbon Dioxide 23 mmol/L (22-30); Chloride 110 mmol/L (98-107); Glucose 93 mg/dL (74-99); Non-African American GFR(CKD) >90 (>60 ml/min/1.73 sqM); Potassium 3.7 mmol/L (3.5-5.1); Sodium 138 mmol/L (137-145); Total Bilirubin 0.3 mg/dL (0.2-1.3); Total Protein 6.1 g/dL (6.3-8.2)
--- NOTE | 2021-11-06 21:14 | US ---
EXAMINATION TYPE: Transabdominal DATE OF EXAM: 11/06/2021 8:42 PM COMPARISON: NONE CLINICAL HISTORY: bleeding 8 days, concern for incomplete ab. Vaginal bleeding for the past 8 days EXAM PERFORMED: Transvaginal (TV) and Transabdominal (TA) EXAM MEASUREMENTS: GESTATIONAL AGE / DATING Dates by LMP: (07 weeks/02 days) EDC: 06/23/2022 MATERNAL ANATOMY Uterus: 10.3 x 5.7 x 5.6 cm Right Ovary: 2.2 x 2.3 x 1.8 cm Left Ovary: 5.1 x 2.6 x 2.2 cm Presence of free fluid: small amount seen Presence of corpus luteal cyst: Left 2.5 x 2.3 x 1.9 cm Presence of subchorionic bleed: none GESTATION / SURVEY IUP: No IUP seen at this time Endometrium = 1.3 small anechoic structure seen near lower uterine segment of uterus appears simiular to prior exam. Date of LMP: 09/16/2021 Beta HcG (if available): 11/02/2021- 600.2, 11/06/2021 399.0 No IUP seen at this time. Endometrium appears thickened IMPRESSION: Empty uterus. No adnexal mass. No evidence of a gestational sac. No evidence of endometrial mass.
--- NOTE | 2021-11-06 21:23 | ED ---
Female Urogenital HPI - General Chief complaint: Vaginal Bleeding Stated complaint: 7 wks , bleeding Time Seen by Provider: 11/06/21 19:33 Source: patient Mode of arrival: ambulatory Limitations: no limitations - History of Present Illness Initial comments: Nafisa is a 36yo F who presents to the ER for reevaluation of vaginal bleeding in setting of likely miscarriage. Patient reports her last menstrual period was September 16, positive test after that. She has been seen multiple times since October 18 due to vaginal bleeding. She's had serial beta hCGs which has shown no significant increase and was advised that she is likely mis carrying. Patient reports she's had persistent vaginal bleeding for 8 days, bleeding is light to moderate, no heavy bleeding, she did pass large clots last week and but no further large clots. She reports it's like Normal. But she didn't typically have menses lasted this long and she has had miscarriages in the past and usually only had a couple days of bleeding. Patient did have a tubal ligation in 2019 and a reversal in 2020 so she does understand she is high risk for ectopic and because of this is quite anxious about the persistent bleeding. Patient states that she saw her OB this week Dr. Holm. She states that he did a quick bedside ultrasound and told her due to her risk she likely has an ectopic though he cannot see one on ultrasound, he did recommend that she take methotrexate which she refused. - Related Data Home Medications Medication Instructions Recorded Confirmed Ondansetron Odt [Zofran Odt] 4 mg PO Q6H PRN 10/29/21 10/29/21 Allergies Allergy/AdvReac Type Severity Reaction Status Date / Time cashew nut Allergy Unknown Verified 11/06/21 19:26 codeine Allergy Chest Pain Verified 11/06/21 19:26 levofloxacin [From Levaquin] Allergy Anaphylaxis Verified 11/06/21 19:26 nitrofurantoin Allergy Anaphylaxis Verified 11/06/21 19:26 macrocrystalline [From Macrodantin] shellfish derived [Shellfish] Allergy Unknown Verified 11/06/21 19:26 Review of Systems ROS Statement: Those systems with pertinent positive or pertinent negative responses have been documented in the HPI. ROS Other: All systems not noted in ROS Statement are negative. Past Medical History Past Medical History: Asthma Additional Past Medical History / Comment(s): ectopic preg, History of Any Multi-Drug Resistant Organisms: None Reported Past Surgical History: Adenoidectomy, Cholecystectomy, Ear Surgery, Hernia Repai r, Tubal Ligation Additional Past Surgical History / Comment(s): PE tubes, tubal- 2010, tubal reversal was 06/22. Past Psychological History: No Psychological Hx Reported Smoking Status: Former smoker Past Alcohol Use History: None Reported Past Drug Use History: None Reported General Exam - General Exam Comments Initial Comments: Physical Exam GENERAL: Patient is well-developed and well-nourished. Patient is nontoxic and well-hydrated and is in no distress. HENT: Normocephalic, Atraumatic. EYES: PERRL, EOMI PULMONARY: Unlabored respirations. CARDIOVASCULAR: RRR Warm and well perfused extremities ABDOMEN: Non-distended SKIN: No rashes or bruising : Deferred NEUROLOGIC: Alert and oriented Normal speech Normal gait MUSCULOSKELETAL: Moving all extremities with no apparent injury PSYCHIATRIC: No SI/HI Limitations: no limitations Course Vital Signs 11/06/21 11/06/21 19:23 21:37 Temperature 97.8 F Pulse Rate 115 H 98 Respiratory 18 18 Rate Blood Pressure 118/74 115/74 O2 Sat by Pulse 98 95 Oximetry Medical Decision Making - Medical Decision Making Patient was seen and evaluated, repeat labs were obtained due to patient's persistent bleeding, serial beta hCG was obtained ultrasound was obtained Patient's hemodynamically stable mildly tachycardic which is more likely related to anxiety than blood loss that she is quite well appearing otherwise Labs were reviewed, hemoglobin is uptrending, beta hCG downtrending at this time Ultrasound with no significant findings, does not appear the patient has passed products of conception as of yet however she still actively bleeding with no pain known signs of infection. Patient is contacted [facility] and has follow up scheduled for next week. At this time I don't feel there is any indication for emergent OB consultation and patient is stable for discharge home. Patient was agreeable with this plan. Close return parameters were discussed patient with discharge home in stable condition. - Lab Data Result diagrams: 11/06/21 19:43 11/06/21 19:43 Lab Results 11/06/21 11/06/21 Range/Units 19:43 19:43 WBC 11.5 H (3.8-10.6) k/uL RBC 3.81 (3.80-5.40) m/uL Hgb 12.1 (11.4-16.0) gm/dL Hct 36.4 (34.0-46.0) % MCV 95.5 (80.0-100.0) fL MCH 31.7 (25.0-35.0) pg MCHC 33.2 (31.0-37.0) g/dL RDW 12.6 (11.5-15.5) % Plt Count 242 (150-450) k/uL MPV 7.8 Neutrophils % 70 % Lymphocytes % 22 % Monocytes % 5 % Eosinophils % 2 % Basophils % 0 % Neutrophils # 8.0 H (1.3-7.7) k/uL Lymphocytes # 2.5 (1.0-4.8) k/uL Monocytes # 0.6 (0-1.0) k/uL Eosinophils # 0.3 (0-0.7) k/uL Basophils # 0.0 (0-0.2) k/uL Sodium 138 (137-145) mmol/L Potassium 3.7 (3.5-5.1) mmol/L Chloride 110 H (98-107) mmol/L Carbon Dioxide 23 (22-30) mmol/L Anion Gap 5 mmol/L BUN 10 (7-17) mg/dL Creatinine 0.58 (0.52-1.04) mg/dL Est GFR (CKD-EPI)AfAm >90 (>60 ml/min/1.73 sqM) Est GFR (CKD-EPI)NonAf >90 (>60 ml/min/1.73 sqM) Glucose 93 (74-99) mg/dL Calcium 8.6 (8.4-10.2) mg/dL Total Bilirubin 0.3 (0.2-1.3) mg/dL AST 21 (14-36) U/L ALT 21 (4-34) U/L Alkaline Phosphatase 73 (38-126) U/L Total Protein 6.1 L (6.3-8.2) g/dL Albumin 3.4 L (3.5-5.0) g/dL HCG, Quant 399.0 mIU/mL Disposition Clinical Impression: Incomplete miscarriage Disposition: HOME SELF-CARE Condition: Stable Instructions (If sedation given, give patient instructions): Miscarriage (ED) Is patient prescribed a controlled substance at d/c from ED?: No Referrals: None,Stated [Primary Care Provider] - 1-2 days Char Banks, [Doctor of Osteopathic Medicine] - 1-2 days
[2021-11-06 21:38] VITALS: BP 115/74; PULSE 98
== END 2021-11-06 21:40 | disposition home or self-care (01) ==
LOC: EC 19:16
DX: O03.4 Incomplete spontaneous abortion without complication (principal); Z87.891 Personal history of nicotine dependence; Z3A.01 Less than 8 weeks gestation of pregnancy
CPT/HCPCS: 36415; 76801; 76817; 80053; 84702; 85025; 99284

== ENCOUNTER → 2023-04-16 | Outpatient (CLI) | payer OTHER ==
--- NOTE | 2023-04-24 21:01 | MR ---
EXAMINATION TYPE: MR knee LT wo con DATE OF EXAM: 04/16/2023 COMPARISON: 10/11/2019 HISTORY: Left knee pain, locking, and swelling. TECHNIQUE: Multiplanar, multisequence imaging of the left knee is performed without IV contrast. FINDINGS: There has been interval development of a subchondral nondisplaced bone fragment on the lateral aspect of the lateral femoral condyle with marked edema in the condyle. There is also edema in the lateral tibial plateau. The articular cartilages are intact. There is a tiny joint effusion. There is absence of the anterior cruciate ligament consistent with complete remote tear. The posterio r cruciate ligament and collateral ligaments are intact.. There is no evidence of meniscal injury. IMPRESSION: 1. Nondisplaced subchondral bone fragment in the lateral aspect of the lateral femoral condyle consis tent with osteochondritis desiccation. The overlying cartilage is intact. 2. Remote complete tear of the anterior cruciate ligament. 3. Edema in the marrow of the lateral femoral condyle and lateral tibial plateau. 4. No meniscal injury.
== END | disposition home or self-care (01) ==
LOC: RADMRIMAIN 17:50
PROVIDERS: ATTEND Family Medicine
DX: M23.92 Unspecified internal derangement of left knee (principal); M25.362 Other instability, left knee; M23.612 Other spontaneous disruption of anterior cruciate ligament of left knee